=== PATIENT | male | born 1945 | race Caucasian/White ===

== ENCOUNTER 2019-09-25 12:51 | Outpatient (CLI) | payer MEDICARE, SELFPAY ==
--- NOTE | ~2019-09-25 | CT_ITS ---
EXAMINATION:CT lung screening DATE: 09/25/2019 13:13 INDICATION: Personal history of tobacco dependence. Current smoker with 100 pack year history. TECHNIQUE: Computed tomography (CT) of the chest was performed without intravenous contrast. Automate d exposure control and iterative reconstruction technique were employed. The dose-length product (DLP ) was 165.17 mGy-cm. COMPARISON: Chest CT 12/22/2016 FINDINGS: There is mild emphysema. There is mild atelectasis bilaterally. There is a 3 mm nodule at t he minor fissure. No pleural effusion. The heart size is normal. There are coronary artery calcificat ions. No pericardial effusion. There is mild thoracic spondylosis. IMPRESSION: 1. Lung-RADS category 2: Benign appearance or behavior. Continue annual screening with noncontrast lo w-dose chest CT in 12 months. Reviewed, dictated and finalized at location A. 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 Lung-RADS category 2: Benign appearance or behavior. Continue annual screeni ng with noncontrast low-dose chest CT in 12 months.
== END 2019-09-25 12:52 | disposition home or self-care (01) ==
PROVIDERS: Visit Provider Internal Medicine
DX: Z12.2 Encounter for screening for malignant neoplasm of respiratory organs (principal); Z87.891 Personal history of nicotine dependence
CPT/HCPCS: G0297

== ENCOUNTER 2020-08-20 12:45 | Outpatient (CLI) | payer MEDICARE, SELFPAY ==
--- NOTE | ~2020-08-20 | XR_ITS ---
EXAMINATION: XR chest 2V DATE: 08/20/2020 12:58 INDICATION: Chronic obstructive pulmonary disease. TECHNIQUE: Frontal and lateral views of the chest were obtained. COMPARISON: Chest 2 views 07/27/2019, chest CT 09/25/2019 FINDINGS: The chest demonstrates clear lungs without pneumonia, pleural effusion, or pneumothorax. Th e heart size is normal. There are prominent paracardial fat pads. IMPRESSION: 1. No acute cardiopulmonary disease. Reviewed, dictated and finalized at location A. 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
[2020-08-20 12:45] VITALS: PULSE 73; O2SAT 90
[2020-08-20 12:50] VITALS: PULSE 92; O2SAT 85
[2020-08-20 12:55] VITALS: PULSE 93; O2SAT 86
[2020-08-20 13:00] VITALS: PULSE 96; O2SAT 87
[2020-08-20 13:05] VITALS: PULSE 95; O2SAT 90
[2020-08-20 13:20] VITALS: PULSE 74; O2SAT 90
--- NOTE | 2020-08-20 13:36 | HOMEO2EVAL ---
Home Oxygen Evaluation RC: Home Oxygen (O2) Evaluation Start: 08/20/20 13:32 Freq: Status: Active Protocol: RPE Activity Type Activity Date Activity User E-Sign Co-Sign Detail Recorded Client Recorded Date Recorded By Document 08/20/20 12:45 [email or web address] [email or web address] 08/20/20 13:35 KEISHA Document 08/20/20 12:50 [email or web address] [email or web address] 08/20/20 13:35 KEISHA Document 08/20/20 12:55 [email or web address] [email or web address] 08/20/20 13:35 KEISHA Document 08/20/20 13:00 [email or web address] [email or web address] 08/20/20 13:35 KEISHA Document 08/20/20 13:05 [email or web address] [email or web address] 08/20/20 13:35 KEISHA Document 08/20/20 13:20 [email or web address] [email or web address] 08/20/20 13:35 KEISHA 08/20/20 08/20/20 08/20/20 12:45 12:50 12:55 Home O2 Evaluation Test Phase Resting Exercise Exercise Oxygen Delivery Room Air Room Air Nasal Cannula Oxygen Flow Rate (L/min) 1 Pulse Oximetry (90-100 %) 90 85 L 86 L Pulse Rate (60-100 beats/min) 73 92 93 Rating of Perceived Dyspnea (PD) Ambulation Distance (feet) Treatment Charges O2 Evaluation 08/20/20 08/20/20 08/20/20 13:00 13:05 13:20 Home O2 Evaluation Test Phase Exercise Exercise Resting Oxygen Delivery Nasal Cannula Nasal Cannula Room Air Oxygen Flow Rate (L/min) 2 3 Pulse Oximetry (90-100 %) 87 L 90 90 Pulse Rate (60-100 beats/min) 96 95 74 Rating of Perceived Dyspnea (PD) +2 Mild, Some Difficulty, Noticeable to the Observer Ambulation Distance (feet) 500 Treatment Charges
== END 2020-08-20 12:46 | disposition home or self-care (01) ==
LOC: ANHPFT 12:46
PROVIDERS: Visit Provider Internal Medicine
DX: J44.9 Chronic obstructive pulmonary disease, unspecified (principal)
CPT/HCPCS: 71046; 94618

== ENCOUNTER 2023-02-22 12:01 | Outpatient (CLI) | payer MEDICARE, SELFPAY ==
--- NOTE | ~2023-02-22 | PE_ITS ---
EXAMINATION: PET skull to mid thigh DATE: 02/22/2023 14:22 INDICATION: Lung mass TECHNIQUE: Blood glucose level was 111 mg/dL. 9.852 mCi of 18-fluorodeoxyglucose (18-FDG) was adminis tered i.v. Low dose computed tomography (CT) images were acquired from the base of the brain to the p roximal thighs for attenuation correction and anatomic localization. Positron emission tomography (PE T) images were acquired in the same distribution beginning 48 minutes after injection. Images includi ng fused PET/CT images were reconstructed in axial, coronal, and sagittal planes. Automated exposure control technique was employed. The dose-length product was 483.00mGy-cm. COMPARISON: Chest CT dated 09/25/2019 FINDINGS: Head/neck: There is symmetric increased activity in the oral and nasal cavities, laryngeal muscles and ocular mu scles without CT correlate, likely physiologic. No pathologically enlarged cervical lymphadenopathy o r suspicious foci of increased FDG uptake in the visualized head or neck. Chest: 2.5 cm FDG avid spiculated mass in the anterior segment of the left upper lobe with maximal SUV of 14 .3 suspicious for primary bronchogenic carcinoma. No other suspicious pulmonary nodules, pneumonia, p ulmonary edema or pleural effusion. Heart size is normal. Atherosclerotic coronary artery calcificati ons potentially coronary artery stenting. No pericardial effusion. Thoracic aorta is normal in calibe r. No pathologically enlarged or FDG avid thoracic lymphadenopathy. Abdomen/pelvis/proximal thighs: Physiologic renal accumulation and excretion of FDG activity in the kidneys, bladder and along portio ns of ureters. Prostatomegaly. Normal degree and heterogenous pattern of increased uptake throughout the liver without radiologic correlate or dominant FDG avid lesion. The gallbladder, pancreas, spleen and bilateral adrenal glands are normal. Prominent uptake scattered throughout the bowels without ra diologic correlate, also likely physiologic. No other abnormal foci of increased FDG uptake or pathol ogically enlarged lymphadenopathy in the abdomen, pelvis or proximal thighs. Musculoskeletal: Moderate cervical and mild thoracic and lumbar spondylosis. No suspicious lytic, blastic or FDG avid bone lesions. IMPRESSION: 1. Prominent FDG uptake associated with a 2.5 cm left upper lobe mass which is concerning for primary bronchogenic carcinoma. Would recommend percutaneous CT-guided biopsy. 2. No lesion suspicious for metastatic disease. Reviewed, dictated and finalized at location A. IMPRESSION: 1. Prominent FDG uptake associated with a 2.5 cm left upper lobe mass which is concerning for primary bronchogenic carcinoma. Would recommend percutaneous CT- guided biopsy. 2. No lesion suspicious for metastatic disease.
[2023-02-22 12:34] LABS: Glucose Point of Care 111 mg/dl (65-105)
== END 2023-02-22 12:02 | disposition home or self-care (01) ==
PROVIDERS: PCP Internal Medicine; Visit Provider Internal Medicine
DX: R91.8 Other nonspecific abnormal finding of lung field (principal)
CPT/HCPCS: 78815; A9552

== ENCOUNTER 2023-03-07 09:04 | Outpatient (CLI) | payer MEDICARE, SELFPAY ==
[2023-02-27 15:33] VITALS: BMI 25.9
--- NOTE | 2023-02-27 15:36 | PC.NURSE ---
Pre Radiology instructions Report to the outpatient robin christensen on date _03/07/23____ at time __9:00AM for procedure Time: _11:00AM___ YOU MAY BE MONITORED AT HOSPITAL FOR UP TO 4 HOURS AFTER YOUR PROCEDURE. A visitor will be allowed to accompany the patient into the hospital. You and your visitor will be asked to self-screen and do not enter if you have any COVID symptoms. A mask is OPTIONAL within the hospital. Patients are to have no food or drink 6 hours prior to procedure time Driving will be restricted after the procedure, you must have a person to drive you home. Labs will be drawn in preop area and once reviewed, you will be taken to radiology area for procedure. When the procedure is completed, you will be taken to outpatient where you will be monitored for several hours. You may have one visitor in this area. Other than holding anti-coagulants, patient may take other medication(s) as scheduled. Prior to your appointment date patients are instructed to hold anti-coagulants after discussing with ordering provider to stop. If unable to discontinue anti-coagulants please notify radiologist. ? No aspirin or warfarin (Coumadin) for 7 days prior to the procedure. ? No clopidogrel (Plavix), ticagrelor (Brilinta), prasugrel (Effient) or dabigatran (Pradaxa) for 5 days prior to the procedure. ? No rivaroxaban (Xarelto), apixaban (Eliquis), dipyridamole (Aggrenox or Persantine) or cilostazol (Pletal) for 2 days prior to the procedure. Medications to discontinue per physician: __HOLD ASPIRIN 7 DAYS PRE-PROCEDURE Date to take last dose: __02/28/23 Please leave all valuables, including medications, at home the day of procedure. The hospital will not accept responsibility for valuables. Wear comfortable, loose fitting clothing.? Follow any additional instructions given to you from ordering provider. Telephone instructions given to _PATIENT & WIFE and asked if any additional questions and then verbalized understanding. Patient advised to call scheduling provider office or registration scheduling [phone] if any additional questions.
[2023-03-07] VITALS (11 sets, daily range): BP systolic 114–129; BP diastolic 55–75; PULSE 47–55; RESP 16–20; TEMP 36.3; O2SAT 92–98
--- NOTE | ~2023-03-07 | CT_ITS ---
EXAMINATION: CT biopsy lung w/imaging DATE: 03/07/2023 11:18 INDICATION: Solitary nodule of lung. TECHNIQUE: The procedure including the risks, benefits, and alternatives and possibility of chest tub e placement were discussed with the patient. Risks discussed included infection, approximately 1/20 r isk of symptomatic hemorrhage beyond mild hemoptysis, approximately 1/3 risk of pneumothorax, approxi mately 1/10 risk of pneumothorax severe enough to warrant chest tube placement, and rarely . The patient understood the risks and agreed to proceed. The patient was placed supine. The skin overlyi ng the left lung was prepped and draped in sterile fashion. Anesthetic was administered with 1% lido michael subcutaneously. A 19 gauge outer needle was advanced under CT guidance to the lesion of intere st. A 20 gauge core biopsy needle was then used to obtain 3 core biopsy specimens. The needle was rem cholo and the entry site was cleaned and dressed. The mA was adjusted according to patient size. Itera tive reconstruction technique was employed. The dose-length product was 162.06 mGy-cm. There were no immediate complications. FINDINGS: CT images demonstrate the outer needle tip adjacent to a 2.5 cm nodule in left lung upper l obe. Postbiopsy images demonstrate a tiny pneumothorax. IMPRESSION: 1. CT-guided core needle biopsy of a 2.5 cm nodule in left lung upper lobe. Reviewed, dictated and finalized at location A.
--- NOTE | ~2023-03-07 | XR_ITS ---
EXAMINATION: XR chest 1V DATE: 03/07/2023 11:24 INDICATION: Left lung nodule status post percutaneous biopsy. TECHNIQUE: A single frontal view of the chest was obtained. COMPARISON: Chest 2 views 08/20/2020 FINDINGS: There is a nodule in left lung upper lobe. No pleural effusion or pneumothorax. The heart s ize is normal. IMPRESSION: 1. Nodule in left lung upper lobe suspicious for primary bronchogenic carcinoma. Reviewed, dictated and finalized at location A. IMPRESSION: 1. Nodule in left lung upper lobe suspicious for primary bronchogenic carcinoma .
--- NOTE | ~2023-03-07 | XR_ITS ---
EXAMINATION: XR chest 1V portable DATE: 03/07/2023 12:22 INDICATION: Left lung nodule status post percutaneous biopsy. TECHNIQUE: A single frontal view of the chest was obtained. COMPARISON: Chest single view at 11:20 AM FINDINGS: There is a nodule in left upper lobe. No pleural effusion or pneumothorax. The heart size i s normal. IMPRESSION: 1. Nodule in left lung upper lobe suspicious for primary bronchogenic carcinoma. Reviewed, dictated and finalized at location A. IMPRESSION: 1. Nodule in left lung upper lobe suspicious for primary bronchogenic carcinoma .
--- NOTE | ~2023-03-07 | XR_ITS ---
EXAMINATION: XR chest 1V portable DATE: 03/07/2023 14:22 INDICATION: Status post percutaneous left lung biopsy TECHNIQUE: frontal view of the chest was obtained. COMPARISON: Chest radiograph dated 03/07/2023 FINDINGS: Again seen is a subtle nodular opacity in the para mediastinal left upper lung zone corresponding to the biopsied nodule which is concerning for primary bronchogenic carcinoma. No other airspace opaciti es, pulmonary edema, pleural effusion or pneumothorax. Heart size is normal IMPRESSION: 1. No pneumothorax or other acute cardiopulmonary disease post percutaneous biopsy of a left upper lo be nodule which is concerning for primary bronchogenic carcinoma. Reviewed, dictated and finalized at location A. IMPRESSION: 1. No pneumothorax or other acute cardiopulmonary disease post percutaneous bio psy of a left upper lobe nodule which is concerning for primary bronchogenic ca rcinoma.
[2023-03-07 09:57] LABS: Mean Platelet Volume 8.9 fl (7.4-10.4); Platelet Count Result 229 k/mm3 (150-375)
[2023-03-07 10:05] LABS: Prothrombin Time 13.2 Seconds (11.1-14.7)
[2023-03-07 11:41] LABS: Glucose Point of Care 99 mg/dl (65-105)
== END 2023-03-07 14:43 | disposition home or self-care (01) ==
PROVIDERS: PCP Internal Medicine; Visit Provider Radiology Diagnostic Radiology
PROC: BB24ZZZ Computerized Tomography (CT Scan) of Bilateral Lungs (ICD-10-PCS; CPT 32408; principal; 2023-03-07 11:00)
DX: R91.1 Solitary pulmonary nodule (principal); C34.12 Malignant neoplasm of upper lobe, left bronchus or lung
CPT/HCPCS: 32408; 36415; 71045; 82948; 85049; 85610; 88305; 88342

== ENCOUNTER 2023-05-04 11:05 | Outpatient (CLI) | payer MEDICARE, SELFPAY ==
[2023-05-04 11:17] LABS: Basophils Absolute Auto 0.1 K/mm3 (0.0-0.1); Basophils Percent Auto 0.6 % (0.2-1.2); Eosinophils Absolute Auto 0.1 K/mm3 (0-0.3); Eosinophils Percent Auto 0.6 % (0-4.4); Hemoglobin 17.1 g/dL (14.0-18.0); Immature Granulocyte Absolute 0.02 K/mm3 (0.00-0.031); Immature Granulocyte Percent A 0.2 % (0-0.5); Lymphocytes Absolute Auto 0.83 K/mm3 (0.9-3.2); Lymphocytes Percent Auto 8.9 % (18.3-44.2); Mean Corpuscular HGB Conc 32.9 g/dl (32-36); Mean Corpuscular Volume 88.3 fl (80-100); Mean Platelet Volume 8.5 fl (7.4-10.4); Monocytes Absolute Auto 0.8 K/mm3 (0.1-0.6); Neutrophils Absolute Auto 7.5 K/mm3 (1.3-6.7); Neutrophils Percent Auto 80.7 % (45.5-73.1); Platelet Count Result 247 k/mm3 (150-375); Red Blood Count 5.89 M/mm3 (4.6-6.20); Red Cell Distribution Width 13.1 % (11.5-14.5); White Blood Count 9.4 K/mm3 (4.5-10.0)
[2023-05-04 11:23] LABS: Blood Urea Nitrogen 12 mg/dL (8-26); Carbon Dioxide 28 mmol/L (22-30); Chloride 95 mmol/L (98-109); Estimated Glomerular Filt Rate > 60; Glucose 104 mg/dL (70-105); Ionized Calcium (POC) 1.24 mmol/L (1.11-1.31); Potassium 4.2 mmol/L (3.5-4.9); Sodium 136 mmol/L (138-146)
[2023-05-04 12:15] LABS: Alanine Aminotransferase 13 U/L (6-50); Albumin Level 4.6 g/dL (3.5-5.1); Alkaline Phosphatase 68 U/L (38-126); Anion Gap 10 mmol/L (8-16); Aspartate Amino Transferase 23 U/L (17-59); Bilirubin,Total 0.8 mg/dL (0.2-1.3); Blood Urea Nitrogen 13 mg/dL (9-20); Calcium 10.1 mg/dL (8.4-10.2); Carbon Dioxide 29 mmol/L (22-30); Chloride 96 mmol/L (98-107); Estimated Glomerular Filt Rate > 60; Glucose 103 mg/dL (65-110); Potassium 4.2 mmol/L (3.4-5.0); Sodium 135 mmol/L (137-145)
== END 2023-05-04 11:06 | disposition home or self-care (01) ==
LOC: ANHLAB 11:07
PROVIDERS: PCP Internal Medicine; Visit Provider Internal Medicine Hematology & Oncology
DX: C34.92 Malignant neoplasm of unspecified part of left bronchus or lung (principal)
CPT/HCPCS: 36415; 80047; 80053; 85025

== ENCOUNTER 2023-07-20 15:01 | Outpatient (CLI) | payer MEDICARE, SELFPAY ==
--- NOTE | ~2023-07-20 | CT_ITS ---
EXAMINATION:CT diagnostic chest w con DATE: 07/20/2023 15:36 INDICATION: Malignant neoplasm of upper lobe of left lung. TECHNIQUE: Computed tomography (CT) of the chest was performed with 75 mL Omnipaque 350 intravenous c ontrast. Automated exposure control and iterative reconstruction technique were employed. The dose-le ngth product (DLP) was 225.23 mGy-cm. COMPARISON: Chest CT 09/25/2019, PET/CT 02/22/2023 FINDINGS: There is mild emphysema. There is mild atelectasis bilaterally. There is a 1.7 cm nodule in left lung upper lobe. No pleural effusion. Aortic atherosclerosis is noted. The heart size is normal . There are coronary artery calcifications. No pericardial effusion. There is cortical thinning of th e kidneys. There are cysts in the kidneys measuring up to 17 mm on the right. There is calcified athe rosclerosis of the aorta and many of the other arteries. There is mild thoracic spondylosis. IMPRESSION: 1. 1.7 cm nodule in left lung upper lobe, decreased from 2.5 cm on 03/07/2023, consistent with squamou s cell carcinoma. Reviewed, dictated and finalized at location A. PACKER IMPRESSION: 1. 1.7 cm nodule in left lung upper lobe, decreased from 2.5 cm on 03/07/2023, c onsistent with squamous cell carcinoma.
[2023-07-20 15:31] LABS: Estimated Glomerular Filt Rate > 60
== END 2023-07-20 15:02 | disposition home or self-care (01) ==
PROVIDERS: PCP Internal Medicine; Visit Provider Radiology Radiation Oncology
DX: C34.12 Malignant neoplasm of upper lobe, left bronchus or lung (principal); R91.1 Solitary pulmonary nodule
CPT/HCPCS: 71260; Q9967

== ENCOUNTER 2023-10-22 09:45 | Outpatient (CLI) | payer MEDICARE, SELFPAY ==
--- NOTE | ~2023-10-22 | CT_ITS ---
EXAMINATION:CT diagnostic chest w con DATE: 10/22/2023 11:22 INDICATION: Malignant neoplasm of upper lobe. TECHNIQUE: Computed tomography (CT) of the chest was performed with 75 mL Omnipaque 350 intravenous c ontrast. Automated exposure control and iterative reconstruction technique were employed. The dose-le ngth product (DLP) was 186.89 mGy-cm. COMPARISON: Chest CT 07/20/2023 FINDINGS: There is mild emphysema. There is mild atelectasis bilaterally. There is a 14 mm nodule in left upper lobe, decreased from 18 mm on 07/20/2023. No pleural effusion. The heart size is normal. T here are coronary artery calcifications. No pericardial effusion. Aortic atherosclerosis is noted. Th ere are no pathologically enlarged lymph nodes. There is mild thoracic spondylosis. IMPRESSION: 1. 14 mm nodule in left lung upper lobe, decreased from 18 mm on 07/20/2023, consistent with squamous cell carcinoma. Reviewed, dictated and finalized at location A. IMPRESSION: 1. 14 mm nodule in left lung upper lobe, decreased from 18 mm on 07/20/2023, co nsistent with squamous cell carcinoma.
[2023-10-23 08:54] LABS: Estimated Glomerular Filt Rate > 60
== END 2023-10-22 09:46 | disposition home or self-care (01) ==
PROVIDERS: PCP Internal Medicine; Visit Provider Radiology Radiation Oncology
DX: C34.12 Malignant neoplasm of upper lobe, left bronchus or lung (principal)
CPT/HCPCS: 71260; Q9967

== ENCOUNTER 2024-01-22 08:25 | Outpatient (CLI) | payer MEDICARE, SELFPAY ==
--- NOTE | ~2024-01-22 | CT_ITS ---
EXAMINATION:CT diagnostic chest w con DATE: 01/22/2024 09:02 INDICATION: Malignant neoplasm of upper lobe, left bronchus. TECHNIQUE: Computed tomography (CT) of the chest was performed with 75 mL Omnipaque 350 intravenous c ontrast. Automated exposure control and iterative reconstruction technique were employed. The dose-le ngth product (DLP) was 186.45 mGy-cm. COMPARISON: Chest CT 10/22/2023, 03/07/2023 FINDINGS: There is mild emphysema. There is mild atelectasis bilaterally. There is a 13 mm nodule in left upper lobe that previously measured 14 mm. No pleural effusion. The heart size is normal. There are coronary artery calcifications. No pericardial effusion. There are no pathologically enlarged lym ph nodes. There is calcified atherosclerosis of the aorta and many of the other arteries. There is mi ld thoracic spondylosis. There is mild chronic height loss of multiple vertebral bodies. IMPRESSION: 1. 13 mm left upper lobe pulmonary nodule that previously measured 14 mm, consistent with squamous ce ll carcinoma. Reviewed, dictated and finalized at location A. IMPRESSION: 1. 13 mm left upper lobe pulmonary nodule that previously measured 14 mm, consi stent with squamous cell carcinoma.
[2024-01-22 08:55] LABS: Estimated Glomerular Filt Rate > 60
== END 2024-01-22 08:26 | disposition home or self-care (01) ==
PROVIDERS: PCP Internal Medicine; Visit Provider Radiology Radiation Oncology
DX: C34.12 Malignant neoplasm of upper lobe, left bronchus or lung (principal); R91.1 Solitary pulmonary nodule
CPT/HCPCS: 71260; Q9967

== ENCOUNTER 2024-02-08 23:34 | Inpatient (IN) | payer MEDICARE, OTHER, SELFPAY ==
--- NOTE | ~2024-02-08 | XR_ITS ---
XR chest 1V portable 02/09/2024 01:08 Indication: Shortness of breath Procedure: AP portable chest Comparison: Comparison to multiple prior studies sequentially, with oldest reviewed study dated 08/20. Findings: Heart size normal. No focal air space disease, pulmonary edema, pleural effusion or suspect ed pneumothorax. The lungs are hyperinflated which is consistent with, but not diagnostic of chronic obstructive pulmonary disease. Impression: 1: No acute cardiopulmonary disease. Reviewed, dictated and finalized at location B. Impression: 1: No acute cardiopulmonary disease.
[2024-02-08 23:40] VITALS: BP 167/82; PULSE 101; RESP 26; TEMP 38.1; O2SAT 98
[2024-02-08 23:49] VITALS: PULSE 101; O2SAT 99
[2024-02-09] VITALS (23 sets, daily range): BP systolic 104–184; BP diastolic 59–97; PULSE 49–101; RESP 16–28; TEMP 36–36.4; O2SAT 94–100; BMI 22.9
--- NOTE | 2024-02-09 00:02 | ECG_ITS ---
Test Date: 2024-02-09 00:08:46 Measurements Intervals [place] Rate: 96 P: 66 IA: 139 QRS: 5 QRSD: 133 T: 23 QT: 375 QTc: 475 Interpretive Statements SINUS RHYTHM RIGHT BUNDLE BRANCH BLOCK BASELINE ARTIFACT- I, II, III, AVR, AVL, AVF, V5 ABNORMAL ECG No previous ECG available for comparison Electronically Signed On 02-09-2024 08:37:17 CDT by Adi Strickland D.O.
[2024-02-09 00:16] LABS: Basophils Percent Auto 0.5 % (0.2-1.2); Hematocrit 51.1 % (42.0-52.0); Hemoglobin 16.9 g/dL (14.0-18.0); Immature Granulocyte Absolute 0.02 K/mm3 (0.00-0.031); Immature Granulocyte Percent A 0.3 % (0-0.5); Lymphocytes Absolute Auto 0.33 K/mm3 (0.9-3.2); Lymphocytes Percent Auto 5.3 % (18.3-44.2); Mean Corpuscular HGB Conc 33.1 g/dl (32-36); Mean Corpuscular Hemoglobin 28.7 pg (26-34); Mean Corpuscular Volume 86.9 fl (80-100); Mean Platelet Volume 10.7 fl (7.4-10.4); Monocytes Absolute Auto 0.8 K/mm3 (0.1-0.6); Monocytes Percent Auto 12.5 % (2.6-8.5); Neutrophils Absolute Auto 5.1 K/mm3 (1.3-6.7); Neutrophils Percent Auto 81.4 % (45.5-73.1); Platelet Count Result 166 k/mm3 (150-375); Red Blood Count 5.88 M/mm3 (4.6-6.20); Red Cell Distribution Width 14.1 % (11.5-14.5); White Blood Count 6.2 K/mm3 (4.5-10.0)
[2024-02-09 00:28] LABS: Alanine Aminotransferase 10 U/L (6-50); Albumin Level 4.5 g/dL (3.5-5.1); Alkaline Phosphatase 63 U/L (38-126); Anion Gap 11 mmol/L (4-12); Aspartate Amino Transferase 20 U/L (17-59); Bilirubin,Total 0.5 mg/dL (0.2-1.3); Blood Urea Nitrogen 11 mg/dL (9-20); Calcium 9.5 mg/dL (8.4-10.2); Carbon Dioxide 27 mmol/L (22-30); Chloride 95 mmol/L (98-107); Estimated CRCL calculation 72 ml/min; Estimated Glomerular Filt Rate > 60; Glucose 144 mg/dL (65-110); Potassium 3.5 mmol/L (3.4-5.0); Sodium 133 mmol/L (137-145)
[2024-02-09 00:52] LABS: Influenza A QL RT-PCR Negative (Negative); Influenza B QL RT-PCR Negative (Negative); RSV RNA, RT-PCR Negative (Negative); SARS-CoV-2 RNA PCR Positive (Negative)
[2024-02-09] MEDS: IPRATROPIUM 0.5 MG/ALBUTEROL SULFATE 2.5 MG AMPUL.NEB 3 ML 12 ML INHALATION (01:30)
[2024-02-09] MEDS: dexAMETHasone SOD PHOS INJ 10 MG/ML 1 ML VIAL IV PUSH ×2 (01:38→05:02)
--- NOTE | 2024-02-09 01:47 | ED.GENADULT ---
HPI - General Adult General Chief complaint: Shortness of Breath/Dyspnea Stated complaint: DIFFICULTY IN BREATHING Time Seen by Provider: 02/09/24 00:21 History of Present Illness HPI narrative: This is a 78-year-old male with history of COPD on 3 L home oxygen presenting for increased difficulty breathing. The last 2 days the patient has had worsening shortness of breath, productive cough and lethargy. Patient denies fevers chills chest pain abdominal pain nausea vomiting or diarrhea. Patient is still smoking tobacco. Patient is supposed to be on home oxygen all times but only wears it at night. Related Data Home Medications Medication Instructions Recorded Confirmed metformin 1,000 mg tablet 1,000 mg PO BID 07/27/19 01/29/24 aspirin 81 mg tablet,delayed 81 mg PO DAILY 08/05/19 01/29/24 release (Aspir-Low) budesonide-formoterol HFA 160 2 puff inhalation BID 08/05/19 01/29/24 mcg-4.5 mcg/actuation aerosol inhaler (Symbicort) trazodone 100 mg tablet 100 mg PO HS 08/05/19 01/29/24 albuterol sulfate 90 mcg/actuation 1 inh inhalation Q4H PRN Dyspnea 08/23/20 01/29/24 aerosol inhaler lisinopril 40 mg tablet 40 mg PO QAM 02/27/23 01/29/24 metoprolol tartrate 100 mg tablet 50 mg PO BID 02/27/23 01/29/24 tiotropium bromide 2.5 2 puff inhalation QAM 02/27/23 01/29/24 mcg/actuation mist for inhalation (Spiriva Respimat) Allergies Allergy/AdvReac Type Severity Reaction Status Date / Time No Known Allergies Allergy Verified 01/29/24 10:16 [facility] Past Medical History Medical History Arthritis CAD (coronary artery disease) COPD (chronic obstructive pulmonary disease) CPAP (continuous positive airway pressure) dependence Glaucoma History of angina Kidney stone Knee effusion, right Right knee DJD Skin cancer Sleep apnea Surgical History Surgical History History of cardiac catheterization History of surgical removal of skin lesion Stented coronary artery Family History Family History Mother Family history of malignant neoplasm Family history of lung cancer Father Family history of Alzheimer's disease Family history of lung cancer Other Family history of cardiovascular disease Social History Social History Smoking packs per day: 1 Smoking cigarettes per day: 20.0 Years smoked: 60 Smoking pack-years: 60.00 Smoking status: Current every day smoker Tobacco type: cigarettes Second hand tobacco smoke exposure: Yes Smoking end date: 07/22/19 Alcohol intake: former Substance use: never Substance use type: does not use Spiritual care concerns: No Exam Narrative: APPEARANCE: Appears older than his stated age Head: atraumatic. EYES: EOMI, NOSE: Atraumatic NECK: Trachea midline RESPIRATORY: Tachypneic, decreased airmovement in all hick[place], increased oxygen commands CARDIOVASCULAR: RRR, no peripheral edema ABDOMINAL: Non-distended soft nontender MUSCULOSKELETAl: No obvious deformities NEURO: Alert. Moving 4/4 extremities SKIN:: Warm, dry. Normal color PSYCHIATRIC: Normal affect Course Vital Signs Vital signs: Vital Signs Temperature 100.6 F H 02/08/24 23:40 Pulse Rate 101 H 02/08/24 23:40 Respiratory Rate 26 H 02/08/24 23:40 Blood Pressure 167/82 H 02/08/24 23:40 Pulse Oximetry 98 02/08/24 23:40 Oxygen Delivery Nasal Cannula 02/08/24 23:40 Oxygen Flow Rate 6 02/08/24 23:40 Temperature 100.6 F H 02/08/24 23:40 Pulse Rate 99 02/09/24 02:30 Respiratory Rate 21 H 02/09/24 02:30 Blood Pressure 184/97 H 02/09/24 00:46 Pulse Oximetry 100 02/09/24 02:30 Oxygen Delivery Nasal Cannula 02/09/24 01:30 Oxygen Flow Rate 3 02/09/24 01:30 Medical Decision Making [facility] Narrative Medical decision making narrative: -Course: 78-year-old male with COPD on 3lpm home 02 presenting for difficulty breathing. On arrival patient febrile/tachycardic tachypnic with increased oxygen demands. Given a breathing treatment. Workup significant for COVID-19 infection. Patient is given 10 mg of dexamethasone. Patient will be admitted to the hospital for further management. -DDX includes but is not limited to: Pneumonia, viral syndrome, COPD exacerbation -Co-morbidities complicating care: COPD, tobacco user -Independent interpretation of studies: Labs reviewed. COVID-19 positive. Independent EKG interpretation: Rhythm [sinus], Rate [96], [place] -[normal], [place] -[normal], QRS [right bundle-branch block], QTC [normal], T waves -[negative for concerning inversions], ST Segments - [Negative for concerning elevations] Final interpretations: [Normal Sinus Rhythm] -Discussion of Management/Consultants: Isabela -Interventions: Hour long DuoNeb treatment, 10 mg dexamethasone, Tylenol -Shared decision making / Disposition:admitted Vital Signs Vital Signs: Vital Signs Temperature 100.6 F H 02/08/24 23:40 Pulse Rate 101 H 02/08/24 23:40 Respiratory Rate 26 H 02/08/24 23:40 Blood Pressure 167/82 H 02/08/24 23:40 Pulse Oximetry 98 02/08/24 23:40 Oxygen Delivery Nasal Cannula 02/08/24 23:40 Oxygen Flow Rate 6 02/08/24 23:40 Temperature 100.6 F H 02/08/24 23:40 Pulse Rate 99 02/09/24 02:30 Respiratory Rate 21 H 02/09/24 02:30 Blood Pressure 184/97 H 02/09/24 00:46 Pulse Oximetry 100 02/09/24 02:30 Oxygen Delivery Nasal Cannula 02/09/24 01:30 Oxygen Flow Rate 3 02/09/24 01:30 Lab Data 02/09/24 00:10 02/09/24 00:10 Labs: Lab Results 02/09/24 02/09/24 Range/Units 00:10 02:10 WBC 6.2 (4.5-10.0) K/mm3 RBC 5.88 (4.6-6.20) M/mm3 Hgb 16.9 (14.0-18.0) g/dL Hct 51.1 (42.0-52.0) % MCV 86.9 (80-100) fl MCH 28.7 (26-34) pg MCHC 33.1 (32-36) g/dl RDW 14.1 (11.5-14.5) % Plt Count 166 (150-375) k/mm3 MPV 10.7 H (7.4-10.4) fl Immature Gran % (Auto) 0.3 (0-0.5) % Neut % (Auto) 81.4 H (45.5-73.1) % Lymph % (Auto) 5.3 L (18.3-44.2) % [place] % (Auto) 12.5 H (2.6-8.5) % Eos % (Auto) 0.0 (0-4.4) % Baso % (Auto) 0.5 (0.2-1.2) % Lymph # (Auto) 0.33 L (0.9-3.2) K/mm3 [place] # (Auto) 0.8 H (0.1-0.6) K/mm3 Eos # (Auto) 0.0 (0-0.3) K/mm3 Baso # (Auto) 0.0 (0.0-0.1) K/mm3 Abs Immat Gran (auto) 0.02 (0.00-0.031) K/mm3 Absolute Neuts (auto) 5.1 (1.3-6.7) K/mm3 Absolute Nucleated RBC 0.000 (0.0-0.012) K/mm3 Nucleated RBC % 0.0 (0.0-0.2) % Sodium 133 L (137-145) mmol/L Potassium 3.5 (3.4-5.0) mmol/L Chloride 95 L (98-107) mmol/L Carbon Dioxide 27 (22-30) mmol/L Anion Gap 11 (4-12) mmol/L BUN 11 (9-20) mg/dL Creatinine 0.70 (0.7-1.3) mg/dL Estim Creat Clear Calc 72 ml/min Estimated GFR > 60 (59 - ) Glucose 144 H (65-110) mg/dL Calcium 9.5 (8.4-10.2) mg/dL Total Bilirubin 0.5 (0.2-1.3) mg/dL AST 20 (17-59) U/L ALT 10 (6-50) U/L Alkaline Phosphatase 63 (38-126) U/L Total Protein 7.0 (6.3-8.2) g/dL Albumin 4.5 (3.5-5.1) g/dL Urine Color Pending Urine Appearance Pending Urine pH Pending Ur Specific [place] Pending Urine Protein Pending Urine Glucose (UA) Pending Urine Ketones Pending Ur Blood (Man) Pending Urine Nitrate Pending Urine Bilirubin Pending Urine Urobilinogen Pending Leukocyte Esterase Rfl Pending Influenza A (RT-PCR) Negative (Negative) Influenza B (RT-PCR) Negative (Negative) RSV (RT-PCR) Negative (Negative) SARS-CoV-2 RNA (RT-PCR) Positive A (Negative) Discharge Plan Discharge Clinical Impression: COVID, COPD (chronic obstructive pulmonary disease) Patient Disposition: Still a Patient Condition: Stable Prescriptions: No Action aspirin [Aspir-Low] 81 mg tablet,delayed release (DR/EC) 81 mg PO DAILY Symbicort 160-4.5 mcg/actuation HFA aerosol inhaler 2 puff INHALATION BID trazodone 100 mg tablet 100 mg PO HS Patient Comments: Yamil Cash albuterol sulfate 90 mcg/actuation HFA aerosol inhaler 1 inh inhalation Q4H PRN (Reason: Dyspnea) metformin 1,000 mg Tablet 1,000 mg PO BID metoprolol tartrate 100 mg tablet 50 mg PO BID Rx Instructions: TAKE 1/2 TABLET BY MOUTH TWICE DAILY lisinopril 40 mg tablet 40 mg PO QAM Rx Instructions: TAKE 1 TABLET BY MOUTH EVERY DAY Spiriva Respimat 2.5 mcg/actuation mist 2 puff INHALATION QAM ipratropium-albuterol 0.5 mg-3 mg(2.5 mg base)/3 mL solution for nebulization See Rx Instructions .ROUTE .COMPLEX Qty: 180 0RF Dose Instruction: USE 3 ML VIA NEBULIZER EVERY 4 HOURS NEEDED FOR SHORTNESS OF BREATH Rx Instructions: USE 3 ML VIA NEBULIZER EVERY 4 HOURS NEEDED FOR SHORTNESS OF BREATH atorvastatin 10 mg tablet 10 mg PO DAILY Qty: 90 1RF Jardiance 25 mg tablet 25 mg PO DAILY Qty: 90 1RF Follow-up/Referrals: Alida,Jonah Priest MD [Primary Care Provider] -
[2024-02-09 02:26] LABS: Appearance Urine Clear (Clear); Bacteria Urine None Seen /hpf; Bilirubin Urine Negative (Negative); Blood Urine 1+ (Negative); Color Urine Yellow (Yellow); Glucose Urine UA 3+ mg/dL (Negative); Ketones Urine Trace mg/dL (Negative); Leukocyte Esterase Ur Negative LEU/UL (Negative); Nitrate Urine Negative (Negative); Non Pathogenic Casts 0-2; Protein Urine 1+ mg/dL (Negative); RBC Urine 0-2 /hpf (0-2); Specific Grav Ur 1.032 (1.001-1.035); Squamous Epithelial Cell Urine None Seen /hpf (Few); Urobilinogen Urine 0.2 mg/dL (<2.0); WBC Urine 0-5 /hpf (0-3)
[2024-02-09 02:47] LABS: Add Urine Microscopic? YES
[2024-02-09] MEDS: ACETAMINOPHEN 500 MG TABLET 1000 MG PO (03:25)
--- NOTE | 2024-02-09 04:40 | ADMGEN ---
This patient, Alysa Driscoll, was admitted to 2 Medical Room 241-01. Patient/family oriented to hospital policies and general routines including ID bracelet, bed and alarms, visiting hours, pain management, procedures, bathroom and other care routines, personal items, smoking policy, room service/diet, and visiting hours. Information on how to activate the Rapid Response Team has been discussed. Patient/Family are encouraged to report perceived risks to care and to ask questions if they do not understand what they are told or what they should do.
--- NOTE | 2024-02-09 07:49 | P.HP_ITS ---
H&P: HPI History of Present Illness Date/Time: 02/09/24 07:49 Chief Complaint: SOB/Weakness/Fatigue Narrative: Patient is a 78-year-old male who presented to the emergency department with complaints shortness of breath,productive cough weakness and fatigue. Patient has a past medical history COPD, CAD, neoplasm of the right lung and is an everyday smoker. Patient denied any fever, chills, dizziness abdominal pain reports requested him come to the emergency department due to increased lethargy for the last day or two. Patient has chronic respiratory failure with hypoxia and wears 3 L supplemental oxygen at home but is not compliant typically only wears at night. Patient denied any improvement with his inhalers denied any chest pain. Initial findings emergency department shows labs unremarkable but did test positive for COVID-19 and chest x-ray showing hyperinflation. He was placed on 6 L nasal cannula for acute on chronic respiratory distress and admitted to the medical unit for continued evaluation and treatment. Review of Systems Review of Systems: All systems reviewed & are unremarkable except as noted in HPI and below PMFSH Past Medical History Medical History Arthritis CAD (coronary artery disease) COPD (chronic obstructive pulmonary disease) CPAP (continuous positive airway pressure) dependence Glaucoma History of angina Kidney stone Knee effusion, right Right knee DJD Skin cancer Sleep apnea Surgical History Surgical History History of cardiac catheterization History of surgical removal of skin lesion Stented coronary artery Family History Family History Mother Family history of malignant neoplasm Family history of lung cancer Family history of cardiovascular disease Father Family history of lung cancer Family history of Alzheimer's disease Family history of cardiovascular disease Social History Social History Smoking packs per day: 1 Smoking cigarettes per day: 20.0 Years smoked: 60 Smoking pack-years: 60.00 Smoking status: Current every day smoker Tobacco type: cigarettes Second hand tobacco smoke exposure: Yes Smoking end date: 07/22/19 Alcohol intake: never Substance use: former Substance use type: marijuana Do You Feel Safe in your Home?: Yes Lack of Transportation: No Lack of Food: Never True Current Housing: I Have Housing Concerned About Future Housing: No Difficulty Paying Gas/Electric Bills: No Difficulty Paying for Meds: No Currently Unemployed: No Education: High School Diploma/GED Difficulty w/ Childcare or Family Care: No Spiritual care concerns: No Meds Home Medications and Allergies Home Medications Medication Instructions Recorded Confirmed Type metformin 1,000 mg tablet 1,000 mg PO DAILY 07/27/19 01/29/24 History aspirin 81 mg tablet,delayed 81 mg PO DAILY 08/05/19 02/09/24 History release (Aspir-Low) budesonide-formoterol HFA 160 2 puff inhalation BID 08/05/19 02/09/24 History mcg-4.5 mcg/actuation aerosol inhaler (Symbicort) trazodone 100 mg tablet 100 mg PO HS 08/05/19 02/09/24 History albuterol sulfate 90 mcg/actuation 1 inh inhalation Q4H PRN Dyspnea 08/23/20 02/09/24 History aerosol inhaler ipratropium 0.5 mg-albuterol 3 mg See Rx Instructions .Route 02/15/21 02/09/24 Rx (2.5 mg base)/3 mL nebulization .COMPLEX #180 mL soln atorvastatin 10 mg tablet 10 mg PO DAILY #90 tabs 09/20/22 02/09/24 Rx lisinopril 40 mg tablet 40 mg PO QAM 02/27/23 02/09/24 History metoprolol tartrate 100 mg tablet 50 mg PO BID 02/27/23 02/09/24 History tiotropium bromide 2.5 2 puff inhalation QAM 02/27/23 02/09/24 History mcg/actuation mist for inhalation (Spiriva Respimat) empagliflozin 25 mg tablet 25 mg PO DAILY #90 tabs 06/26/23 02/09/24 Rx (Jardiance) bupropion HCl 100 mg tablet,12 hr 100 mg PO BID 02/09/24 02/09/24 History sustained-release Allergies Allergy/AdvReac Type Severity Reaction Status Date / Time No Known Allergies Allergy Verified 02/09/24 04:44 Vital Signs Vital Signs - 24 hr 02/08/24 23:40 02/08/24 23:49 02/08/24 23:49 Temperature 100.6 F H Pulse Rate 101 H 101 H Respiratory Rate 26 H Blood Pressure 167/82 H Pulse Oximetry 98 99 Oxygen Delivery Nasal Cannula Nasal Cannula Oxygen Flow Rate 6 4 02/09/24 01:50 02/09/24 01:30 02/09/24 00:31 Temperature Pulse Rate 91 96 Respiratory Rate 20 27 H Blood Pressure 167/89 H Pulse Oximetry 96 94 Oxygen Delivery Nasal Cannula Oxygen Flow Rate 3 02/09/24 00:46 02/09/24 02:30 02/09/24 03:02 Temperature Pulse Rate 100 99 97 Respiratory Rate 28 H 21 H 20 Blood Pressure 184/97 H Pulse Oximetry 95 100 Oxygen Delivery Oxygen Flow Rate 02/09/24 05:04 02/09/24 05:05 02/09/24 05:00 Temperature 97.6 F 97.6 F Pulse Rate 96 96 Respiratory Rate 16 16 Blood Pressure 104/59 L Pulse Oximetry 97 97 Oxygen Delivery Nasal Cannula Oxygen Flow Rate 6 02/09/24 04:00 Temperature Pulse Rate 101 H Respiratory Rate Blood Pressure Pulse Oximetry Oxygen Delivery Oxygen Flow Rate Exam Narrative: Physical Exam: * GENERAL: Alert and oriented x 3. No acute distress. * EYES: EOMI. No scleral icterus. PERRLA. * HEENT: Moist mucous membranes. * LUNGS: Rhonchi throughout auscultation bilaterally. use of accessory muscles and tachypnea * CARDIOVASCULAR: Regular rate and rhythm. No murmur. No JVD. S1-S2 * ABDOMEN: Soft, non tenderness and non-distended. No palpable masses. * EXTREMITIES: No edema. Non-tender * SKIN: No rashes or lesions. Skin warm, dry. * NEUROLOGIC: No focal neurological deficits. CN II-XII grossly intact * PSYCHIATRIC: Appropriate mood and affect. Good judgement and insight. No visual or auditory hallucinations. No suicidal or homicidal ideation. H&P: Results Labs Labs: Short CBC 02/09/24 Range/Units 00:10 WBC 6.2 (4.5-10.0) K/mm3 Hgb 16.9 (14.0-18.0) g/dL Hct 51.1 (42.0-52.0) % Plt Count 166 (150-375) k/mm3 [facility] 02/09/24 00:10 Sodium 133 L Potassium 3.5 Chloride 95 L Carbon Dioxide 27 BUN 11 Creatinine 0.70 Glucose 144 H Calcium 9.5 Liver Function 02/09/24 Range/Units 00:10 Total Bilirubin 0.5 (0.2-1.3) mg/dL AST 20 (17-59) U/L ALT 10 (6-50) U/L Alkaline Phosphatase 63 (38-126) U/L Albumin 4.5 (3.5-5.1) g/dL Urine 02/09/24 Range/Units 02:10 Urine Color Yellow (Yellow) Urine Appearance Clear (Clear) Urine pH 5.0 (5.0-9.0) Ur Specific [place] 1.032 (1.001-1.035) Urine Protein 1+ H (Negative) mg/dL Urine Glucose (UA) 3+ H (Negative) mg/dL Imaging Chest x-ray: Radiologist's impression: XR chest 1V portable 02/09/2024 01:08 Indication: Shortness of breath Procedure: AP portable chest Comparison: Comparison to multiple prior studies sequentially, with oldest reviewed study dated 08/20/2020. Findings: Heart size normal. No focal air space disease, pulmonary edema, pleural effusion or suspected pneumothorax. The lungs are hyperinflated which is consistent with, but not diagnostic of chronic obstructive pulmonary disease. Impression: 1: No acute cardiopulmonary disease. Assessment and Plan Assessment and plan (1) COVID: Code(s): U07.1 - COVID-19 Status: Acute (2) Malignant neoplasm of upper lobe, left bronchus or lung: Code(s): C34.12 - Malignant neoplasm of upper lobe, left bronchus or lung Status: Acute (3) COPD exacerbation: Code(s): J44.1 - Chronic obstructive pulmonary disease with (acute) exacerbation Status: Acute (4) Essential (primary) hypertension: Code(s): I10 - Essential (primary) hypertension Status: Acute (5) Type 2 diabetes mellitus without complication, without long-term current use of insulin: Code(s): E11.9 - Type 2 diabetes mellitus without complications Status: Acute (6) Dyslipidemia, goal LDL below 100: Code(s): E78.5 - Hyperlipidemia, unspecified Status: Acute (7) Acute on chronic respiratory failure with hypoxia: Code(s): J96.21 - Acute and chronic respiratory failure with hypoxia Status: Acute Plan Acute on chronic respiratory failure with hypoxia * Wears 3L NC supplemental oxygen at home non-compliant * placed on 6L in the ED 98% Wean O2 to maintain SPO2 92% * COVID+ * COPD exacerbation * Smoking cessation COVID+ * CXR showing hyperinflated lungs * Supportive care. * Monitor for COVID pneumonia, acute respiratory distress syndrome. * Decadron 6 mg daily * remdesivir for 5 days for patient with high risk for hypoxemia * supplemental oxygen as needed to maintain 92% oxygen saturation * monitor LFTs daily * incentive spirometer while awake * DuoNebs * guaifenesin scheduled for cough * glucose control for steroid use * gentle IV hydration keep patient dry COPD * HX malignant neoplasm of the upper lobe * Bronchodilators. * CXR showing hyperinflated lungs * incentive spirometry while awake. * steroids initiated covered with Decadron for COVID-19 * azithromycin 500 x 1 day/250 daily * supplemental oxygen therapy to maintain oxygen 92% wears 3L at home noncompliance * Pulmonary rehab if indicated. * Disease management following GOLD guidelines. * Repeat hospitalization risk evaluation per [facility] * Smoking cessation counseling done * Follow-up with steam distribution supervisor as an outpatient Diabetes * Accu-Cheks a.c. HS * sliding scale insulin * Jardiance resumed * hold oral diabetic medications (Metformin on medication reconciliation) * resume patient's home long-acting * Hemoglobin A1c 7.2 02/2022 repeat pending * Diabetic diet * encourage lifestyle modifications and weight loss * Optimize Isrrael inhibitors and statins. * Watch for hypoglycemia/hypoglycemic protocol ordered HX CAD: resumed BB and statin HX HTN: Resumed BB and lisinopril Code status: Full code per patient DVT prophylaxis: Lovenox Stress ulcer prophylaxis: Protonix 40 daily PT/OT notes: Ambulatory Disposition: Patient will continue admission to the medical unit treatment COPD exacerbation and supportive care for COVID-19 continue to wean supplemental oxygen as tolerated to maintain 92%. Plan will be to return home with when medically stable. Quality VTE Prophylaxis VTE prophylaxis: pharmacologic ordered -Patient's previous records reviewed on admission -ER notes reviewed in detail on admission -discussed all findings and current treatment plan with patient/Family/POA -Consultations reviewed for recommendations -Patient's disposition for safe discharge discussed with heel caser Dictation performed by [employer] direct speech recognition software, therefore lead recoverer variants and typographical errors may occur. Hospitalist [facility] Advance Care Plan I have confirmed that the patient's Advanced Care Plan is present, code status is documented, or surrogate decision maker is listed in patient medical record.: Yes Medication Reconciliation I have utilized all available resources to obtain, update and review the patients current medications (includes all prescriptions, OTC, herbals, cannabis, and nutritional supplements).: Yes The patient is not eligible for med reconciliation; the patient is in a emergent medical situation where delaying treatment would jeopardize the patients health.: No
[2024-02-09 07:59] LABS: Glucose Point of Care 230 mg/dl (65-105)
[2024-02-09] MEDS: ALBUTEROL SULFATE (*SP) AEROSOL 1 PUFF 2 PUFF INHALATION ×3 (08:22→20:33)
[2024-02-09] MEDS: ASPIRIN 81 MG ENTERIC TABLET PO (08:51)
[2024-02-09] MEDS: AZITHROMYCIN 250 MG TABLET 500 MG PO (08:51)
[2024-02-09] MEDS: ATORVASTATIN 10 MG TABLET PO (08:51)
[2024-02-09] MEDS: buPROPion HCL SR (12HR) 100 MG TABCR PO ×2 (08:51→20:50)
[2024-02-09] MEDS: lisinopriL 20 MG TABLET 40 MG PO (08:52)
[2024-02-09] MEDS: ENOXAPARIN 40 MG/0.4 ML SYRINGE SUB-Q (08:52)
[2024-02-09] MEDS: EMPAGLIFLOZIN 25 MG TABLET PO (08:52)
[2024-02-09] MEDS: guaiFENesin 12 HR 600 MG TABCR 1200 MG PO ×2 (08:52→20:50)
[2024-02-09] MEDS: FOLIC ACID 1 MG TABLET PO (08:52)
[2024-02-09] MEDS: MULTIVITAMINS THERAPEUTIC TAB (*BKC) 1 TABLET PO (08:53)
[2024-02-09] MEDS: PANTOPRAZOLE 40 MG TABLET PO (08:53)
[2024-02-09] MEDS: METOPROLOL TARTRATE 50 MG TAB 100 MG PO (08:53)
[2024-02-09] MEDS: INSULIN ASPART (*BKC) 100 UNITS/ML SUB-Q ×2 (08:59→12:29)
[2024-02-09] MEDS: REMDESIVIR 200 MG/NS 250 ML 200 MG/250 ML BAG 250 MG IVPB (09:45)
[2024-02-09 10:34] LABS: Hemoglobin A1C 6.5 % (<5.7)
[2024-02-09 12:09] LABS: Glucose Point of Care 221 mg/dl (65-105)
[2024-02-09 16:45] LABS: Glucose Point of Care 116 mg/dl (65-105)
[2024-02-09] MEDS: traZODone HCL 50 MG TABLET 100 MG PO (20:50)
[2024-02-09 23:10] LABS: Glucose Point of Care 108 mg/dl (65-105)
[2024-02-10] VITALS (16 sets, daily range): BP systolic 104–133; BP diastolic 49–62; PULSE 49–55; RESP 14–18; TEMP 36.1–36.8; O2SAT 95–99
[2024-02-10] MEDS: ALBUTEROL SULFATE (*SP) AEROSOL 1 PUFF 2 PUFF INHALATION ×4 (02:12→19:51)
[2024-02-10 06:06] LABS: Magnesium 2.2 mg/dL (1.6-2.3)
[2024-02-10 08:09] LABS: Alanine Aminotransferase 8 U/L (6-50); Albumin Level 3.7 g/dL (3.5-5.1); Alkaline Phosphatase 52 U/L (38-126); Anion Gap 6 mmol/L (4-12); Aspartate Amino Transferase 23 U/L (17-59); Bilirubin,Total 0.4 mg/dL (0.2-1.3); Blood Urea Nitrogen 19 mg/dL (9-20); Calcium 9.3 mg/dL (8.4-10.2); Carbon Dioxide 34 mmol/L (22-30); Chloride 99 mmol/L (98-107); Estimated CRCL calculation 70 ml/min; Estimated Glomerular Filt Rate > 60; Glucose 76 mg/dL (65-110); Potassium 4.3 mmol/L (3.4-5.0); Sodium 139 mmol/L (137-145)
[2024-02-10 08:14] LABS: Glucose Point of Care 74 mg/dl (65-105)
[2024-02-10 08:16] LABS: Hematocrit 52.4 % (42.0-52.0); Hemoglobin 16.6 g/dL (14.0-18.0); Mean Corpuscular HGB Conc 31.7 g/dl (32-36); Mean Corpuscular Hemoglobin 28.6 pg (26-34); Mean Corpuscular Volume 90.3 fl (80-100); Mean Platelet Volume 10.1 fl (7.4-10.4); Platelet Count Result 175 k/mm3 (150-375); Red Cell Distribution Width 14.3 % (11.5-14.5); White Blood Count 7.1 K/mm3 (4.5-10.0)
[2024-02-10] MEDS: ASPIRIN 81 MG ENTERIC TABLET PO (09:26)
[2024-02-10] MEDS: dexAMETHasone 2 MG TABLET 6 MG PO (09:26)
[2024-02-10] MEDS: FOLIC ACID 1 MG TABLET PO (09:28)
[2024-02-10] MEDS: AZITHROMYCIN 250 MG TABLET PO (09:28)
[2024-02-10] MEDS: EMPAGLIFLOZIN 25 MG TABLET PO (09:28)
[2024-02-10] MEDS: buPROPion HCL SR (12HR) 100 MG TABCR PO ×2 (09:28→21:21)
[2024-02-10] MEDS: guaiFENesin 12 HR 600 MG TABCR 1200 MG PO ×2 (09:28→21:21)
[2024-02-10] MEDS: ENOXAPARIN 40 MG/0.4 ML SYRINGE SUB-Q (09:28)
[2024-02-10] MEDS: PANTOPRAZOLE 40 MG TABLET PO (09:29)
[2024-02-10] MEDS: MULTIVITAMINS THERAPEUTIC TAB (*BKC) 1 TABLET PO (09:29)
[2024-02-10] MEDS: ALBUTEROL SULFATE (*SP) INHALER 1 PUFF (09:31)
[2024-02-10] MEDS: REMDESIVIR 100 MG/NS 250 ML 100 MG/250 ML BAG 250 MG IVPB (10:00)
[2024-02-10 12:08] LABS: Glucose Point of Care 86 mg/dl (65-105)
--- NOTE | 2024-02-10 12:34 | P.PNIM_ITS ---
Progress Note: A&P Assessment and Plan (1) COVID: Code(s): U07.1 - COVID-19 Status: Acute (2) Malignant neoplasm of upper lobe, left bronchus or lung: Code(s): C34.12 - Malignant neoplasm of upper lobe, left bronchus or lung Status: Acute (3) COPD exacerbation: Code(s): J44.1 - Chronic obstructive pulmonary disease with (acute) exacerbation Status: Acute (4) Essential (primary) hypertension: Code(s): I10 - Essential (primary) hypertension Status: Acute (5) Type 2 diabetes mellitus without complication, without long-term current use of insulin: Code(s): E11.9 - Type 2 diabetes mellitus without complications Status: Acute (6) Dyslipidemia, goal LDL below 100: Code(s): E78.5 - Hyperlipidemia, unspecified Status: Acute (7) Acute on chronic respiratory failure with hypoxia: Code(s): J96.21 - Acute and chronic respiratory failure with hypoxia Status: Acute (8) Bradycardia: Code(s): R00.1 - Bradycardia, unspecified Status: Acute Plan Acute on chronic respiratory failure with hypoxia * Wears 3L NC supplemental oxygen at home non-compliant * placed on 6L in the ED 98% Wean O2 to maintain SPO2 92% * COVID+ * COPD exacerbation * Smoking cessation COVID+ * CXR showing hyperinflated lungs * Supportive care. * Monitor for COVID pneumonia, acute respiratory distress syndrome. * Decadron 6 mg daily * remdesivir for 5 days for patient with high risk for hypoxemia * supplemental oxygen as needed to maintain 92% oxygen saturation * monitor LFTs daily * incentive spirometer while awake * DuoNebs * guaifenesin scheduled for cough * glucose control for steroid use * gentle IV hydration keep patient dry COPD * HX malignant neoplasm of the upper lobe * Bronchodilators. * CXR showing hyperinflated lungs * incentive spirometry while awake. * steroids initiated covered with Decadron for COVID-19 * azithromycin 500 x 1 day/250 daily * supplemental oxygen therapy to maintain oxygen 92% wears 3L at home noncompliance * Pulmonary rehab if indicated. * Disease management following GOLD guidelines. * Repeat hospitalization risk evaluation per [facility] * Smoking cessation counseling done * Follow-up with ice skating instructor as an outpatient Bradycardia * Decreased metoprolol to 50 mg b.i.d. * Cardiac monitoring Diabetes * Accu-Cheks a.c. HS * sliding scale insulin * Jardiance resumed * hold oral diabetic medications (Metformin on medication reconciliation) * resume patient's home long-acting * Hemoglobin A1c 7.2 02/2022 repeat pending * Diabetic diet * encourage lifestyle modifications and weight loss * Optimize Isrrael inhibitors and statins. * Watch for hypoglycemia/hypoglycemic protocol ordered HX CAD: resumed BB and statin HX HTN: Resumed BB and lisinopril Code status: Full code per patient DVT prophylaxis: Lovenox Stress ulcer prophylaxis: Protonix 40 daily PT/OT notes: PT/OT pending Disposition: Patient will continue admission to the medical unit treatment COPD exacerbation and supportive care for COVID-19 continue to wean supplemental oxygen as tolerated to maintain 92%. Plan will be to return home with when medically stable. Time Spent With Patient Time with patient: 15 - 25 minutes Subjective Date/time seen: 02/10/24 12:34 Interval history: Admission: Patient is a 78-year-old male who presented to the emergency department with complaints shortness of breath,productive cough weakness and fatigue. Patient has a past medical history COPD, CAD, neoplasm of the right lung and is an everyday smoker. Patient denied any fever, chills, dizziness abdominal pain reports requested him come to the emergency department due to increased lethargy for the last day or two. Patient has chronic respiratory failure with hypoxia and wears 3 L supplemental oxygen at home but is not compliant typically only wears at night. Patient denied any improvement with his inhalers denied any chest pain. Initial findings emergency department shows labs unremarkable but did test positive for COVID-19 and chest x-ray showing hyperinflation. He was placed on 6 L nasal cannula for acute on chronic respiratory distress and admitted to the medical unit for continued evaluation and treatment. 02/10/2024: Patient still with shortness of breath but back to baseline 3 L continues to have some fatigue order PT OT continue with current treatment for COVID-19 and COPD exacerbation. Review of Systems Review of Systems: All systems reviewed & are unremarkable except as noted in HPI and below Exam Narrative: Physical Exam: * GENERAL: Alert and oriented x 3. No acute distress. * EYES: EOMI. No scleral icterus. PERRLA. * HEENT: Moist mucous membranes. * LUNGS: Rhonchi throughout auscultation bilaterally. use of accessory muscles and tachypnea * CARDIOVASCULAR: Regular rate and rhythm. No murmur. No JVD. S1-S2 * ABDOMEN: Soft, non tenderness and non-distended. No palpable masses. * EXTREMITIES: No edema. Non-tender * SKIN: No rashes or lesions. Skin warm, dry. * NEUROLOGIC: No focal neurological deficits. CN II-XII grossly intact * PSYCHIATRIC: Appropriate mood and affect. Good judgement and insight. No visual or auditory hallucinations. No suicidal or homicidal ideation. Objective Data Vital Signs Vital Signs: Vital Signs - 24 hr 02/09/24 13:31 02/09/24 13:31 02/09/24 14:00 Temperature 96.8 F L Pulse Rate 52 L 54 L Respiratory Rate 20 20 Blood Pressure 122/66 Pulse Oximetry 96 100 Oxygen Delivery Nasal Cannula Oxygen Flow Rate 3 Fraction of Inspired Oxygen 32 02/09/24 16:00 02/09/24 20:44 02/09/24 20:51 Temperature 97.6 F Pulse Rate 55 L 55 L 49 L Respiratory Rate 16 Blood Pressure 115/62 Pulse Oximetry 97 Oxygen Delivery Oxygen Flow Rate Fraction of Inspired Oxygen 02/09/24 20:33 02/09/24 20:33 02/09/24 20:00 Temperature Pulse Rate 53 L 55 L Respiratory Rate 16 Blood Pressure Pulse Oximetry 97 Oxygen Delivery Nasal Cannula Oxygen Flow Rate 3 Fraction of Inspired Oxygen 02/10/24 00:00 02/10/24 02:13 02/10/24 04:00 Temperature Pulse Rate 54 L 53 L 53 L Respiratory Rate 16 Blood Pressure Pulse Oximetry Oxygen Delivery Oxygen Flow Rate Fraction of Inspired Oxygen 02/10/24 05:37 02/10/24 08:00 02/10/24 08:30 Temperature 98.0 F Pulse Rate 55 L 55 L Respiratory Rate 16 Blood Pressure 133/62 Pulse Oximetry 98 96 Oxygen Delivery Nasal Cannula Oxygen Flow Rate 3 Fraction of Inspired Oxygen 02/10/24 09:19 02/10/24 10:38 02/10/24 09:25 Temperature 96.9 F L Pulse Rate 50 L 50 L Respiratory Rate 18 Blood Pressure 104/49 L Pulse Oximetry 95 95 Oxygen Delivery Nasal Cannula Oxygen Flow Rate 3 Fraction of Inspired Oxygen 02/10/24 12:00 Temperature Pulse Rate 50 L Respiratory Rate Blood Pressure Pulse Oximetry Oxygen Delivery Oxygen Flow Rate Fraction of Inspired Oxygen Intake/Output Intake/Output: Intake & Output 02/07/24 02/08/24 02/09/24 02/10/24 23:59 23:59 23:59 23:59 Intake Total 720 940 Output Total 1700 1400 Balance -980 -460 Meds/Results Medications: Active Medications Generic Name Dose Route Start Last Admin Trade Name Freq PRN Reason Stop Dose Admin Acetaminophen 650 mg 02/09/24 07:43 Acetaminophen 325 Mg Tablet PO Q4H PRN Mild Pain (1-3) or Fever Albuterol 2 puff 02/09/24 09:00 02/10/24 08:30 Albuterol Sulfate (*Sp) Aerosol 1 Puff INHALATION 2 puff Q6HRT [facility] Administration Aspirin 81 mg 02/09/24 09:00 02/10/24 09:26 Aspirin 81 Mg Enteric Tablet PO 81 mg DAILY [facility] Administration Atorvastatin Calcium 10 mg 02/09/24 09:00 02/10/24 10:37 Atorvastatin 10 Mg Tablet PO Not Given DAILY [facility] Azithromycin 250 mg 02/10/24 09:00 02/10/24 09:28 Azithromycin 250 Mg Tablet PO 02/13/24 09:01 250 mg DAILY [facility] Administration Bupropion HCl 100 mg 02/09/24 09:00 02/10/24 09:28 Bupropion Hcl Sr (12hr) 100 Mg Tabcr PO 100 mg Q12HR [facility] Administration Dexamethasone 6 mg 02/10/24 08:00 02/10/24 09:26 Dexamethasone 2 Mg Tablet PO 02/19/24 08:01 6 mg DAILY@0800 [facility] Administration Dextrose 12.5 gm 02/09/24 07:48 Dextrose 50% 25 Gm/50 Ml Syringe IV PUSH PRN PRN Hypoglycemia Protocol Empagliflozin 25 mg 02/09/24 09:00 02/10/24 09:28 Empagliflozin 25 Mg Tablet PO 25 mg DAILY [facility] Administration Enoxaparin Sodium 40 mg 02/09/24 09:00 02/10/24 09:28 Enoxaparin 40 Mg/0.4 Ml Syringe SUB-Q 40 mg DAILY [facility] Administration Folic Acid 1 mg 02/09/24 09:00 02/10/24 09:28 Folic Acid 1 Mg Tablet PO 1 mg DAILY [facility] Administration Glucagon 1 mg 02/09/24 07:48 Glucagon For Inj 1 Mg Vial IM PRN PRN Hypoglycemia Protocol Glucose 15 gm 02/09/24 07:48 Glucose Oral Gel 15 Gm Of Glucse In 37.5 Gm Tube PO PRN PRN Hypoglycemia Protocol Guaifenesin 1,200 mg 02/09/24 09:00 02/10/24 09:28 Guaifenesin 12 Hr 600 Mg Tabcr PO 1,200 mg Q12HR [facility] Administration Remdesivir 100 mg in 250 mls @ 250 mls/hr 02/10/24 10:00 02/10/24 11:00 IVPB 02/13/24 10:59 Infused Q24H [facility] Infusion Dextrose 1,000 mls @ 100 mls/hr 02/09/24 07:48 Dextrose 5% 1,000 Ml IVPB PRN PRN Hypoglycemia Protocol Insulin Aspart 2 - 5 units 02/09/24 08:00 02/10/24 12:21 Insulin Aspart (*Bkc) 100 Units/Ml SUB-Q Not Given TIDWM [facility] Protocol Lisinopril 40 mg 02/09/24 09:00 02/10/24 10:37 Lisinopril 20 Mg Tablet PO Not Given QAM [facility] Metoprolol Tartrate 50 mg 02/10/24 09:00 02/10/24 10:38 Metoprolol Tartrate 50 Mg Tab PO Not Given Q12HR [facility] Multivitamins Therapeutic 1 tablet 02/09/24 09:00 02/10/24 09:29 Multivitamins Therapeutic Tab (*Bkc) PO 1 tablet QAM [facility] Administration Ondansetron HCl 4 mg 02/09/24 07:43 Ondansetron Inj 4 Mg/2 Ml Vial IV PUSH Q6H PRN Nausea And Vomiting Pantoprazole Sodium 40 mg 02/09/24 09:00 02/10/24 09:29 Pantoprazole 40 Mg Tablet PO 40 mg QAM [facility] Administration Trazodone HCl 100 mg 02/09/24 21:00 02/09/24 20:50 Trazodone Hcl 50 Mg Tablet PO 100 mg HS [facility] Administration Radiology Results: ITS Impressions Chest X-Ray 02/09/24 07:18 Impression: 1: No acute cardiopulmonary disease. Labs Labs: Laboratory Results - last 24 hr 02/09/24 02/09/24 02/10/24 16:38 20:41 05:20 WBC 7.1 RBC 5.80 Hgb 16.6 Hct 52.4 H MCV 90.3 MCH 28.6 MCHC 31.7 L RDW 14.3 Plt Count 175 MPV 10.1 Sodium 139 Potassium 4.3 Chloride 99 Carbon Dioxide 34 H Anion Gap 6 BUN 19 Creatinine 0.70 Estim Creat Clear Calc 70 Estimated GFR > 60 Glucose 76 POC Capillary Glucose 116 H 108 H Calcium 9.3 Magnesium 2.2 Total Bilirubin 0.4 AST 23 ALT 8 Alkaline Phosphatase 52 Total Protein 6.0 L Albumin 3.7 02/10/24 02/10/24 08:09 12:00 WBC RBC Hgb Hct MCV MCH MCHC RDW Plt Count MPV Sodium Potassium Chloride Carbon Dioxide Anion Gap BUN Creatinine Estim Creat Clear Calc Estimated GFR Glucose POC Capillary Glucose 74 86 Calcium Magnesium Total Bilirubin AST ALT Alkaline Phosphatase Total Protein Albumin Quality VTE Prophylaxis VTE prophylaxis: pharmacologic ordered Hospitalist MIPS Advance Care Plan I have confirmed that the patient's Advanced Care Plan is present, code status is documented, or surrogate decision maker is listed in patient medical record.: Yes Medication Reconciliation I have utilized all available resources to obtain, update and review the patien ts current medications (includes all prescriptions, OTC, herbals, cannabis, and nutritional supplements).: Yes The patient is not eligible for med reconciliation; the patient is in a emergent medical situation where delaying treatment would jeopardize the patients health.: No
[2024-02-10 17:31] LABS: Glucose Point of Care 115 mg/dl (65-105)
[2024-02-10 21:09] LABS: Glucose Point of Care 159 mg/dl (65-105)
[2024-02-10] MEDS: traZODone HCL 50 MG TABLET 100 MG PO (21:21)
[2024-02-11] VITALS (15 sets, daily range): BP systolic 123–142; BP diastolic 63–78; PULSE 45–70; RESP 13–20; TEMP 36.4–36.6; O2SAT 94–100; BMI 22.9
[2024-02-11] MEDS: ALBUTEROL SULFATE (*SP) AEROSOL 1 PUFF 2 PUFF INHALATION ×4 (02:18→20:28)
[2024-02-11 06:29] LABS: Prothrombin Time 14.1 Seconds (11.1-14.7)
[2024-02-11 06:51] LABS: Alanine Aminotransferase 9 U/L (6-50); Albumin Level 3.5 g/dL (3.5-5.1); Alkaline Phosphatase 48 U/L (38-126); Aspartate Amino Transferase 24 U/L (17-59); Bilirubin,Total 0.3 mg/dL (0.2-1.3)
[2024-02-11 08:18] LABS: Glucose Point of Care 73 mg/dl (65-105)
[2024-02-11] MEDS: dexAMETHasone 2 MG TABLET 6 MG PO (08:30)
[2024-02-11] MEDS: ASPIRIN 81 MG ENTERIC TABLET PO (08:31)
[2024-02-11] MEDS: buPROPion HCL SR (12HR) 100 MG TABCR PO ×2 (08:33→21:23)
[2024-02-11] MEDS: AZITHROMYCIN 250 MG TABLET PO (08:33)
[2024-02-11] MEDS: guaiFENesin 12 HR 600 MG TABCR 1200 MG PO ×2 (08:34→21:23)
[2024-02-11] MEDS: LOSARTAN POTASSIUM 25 MG TABLET PO (08:34)
[2024-02-11] MEDS: ENOXAPARIN 40 MG/0.4 ML SYRINGE SUB-Q (08:34)
[2024-02-11] MEDS: FOLIC ACID 1 MG TABLET PO (08:34)
[2024-02-11] MEDS: EMPAGLIFLOZIN 25 MG TABLET PO (08:34)
[2024-02-11] MEDS: PANTOPRAZOLE 40 MG TABLET PO (08:35)
[2024-02-11] MEDS: MULTIVITAMINS THERAPEUTIC TAB (*BKC) 1 TABLET PO (08:35)
[2024-02-11] MEDS: ATORVASTATIN 10 MG TABLET PO (08:35)
--- NOTE | 2024-02-11 11:57 | P.PNIM_ITS ---
Progress Note: A&P Assessment and Plan (1) COVID: Code(s): U07.1 - COVID-19 Status: Acute (2) Malignant neoplasm of upper lobe, left bronchus or lung: Code(s): C34.12 - Malignant neoplasm of upper lobe, left bronchus or lung Status: Acute (3) COPD exacerbation: Code(s): J44.1 - Chronic obstructive pulmonary disease with (acute) exacerbation Status: Acute (4) Essential (primary) hypertension: Code(s): I10 - Essential (primary) hypertension Status: Acute (5) Type 2 diabetes mellitus without complication, without long-term current use of insulin: Code(s): E11.9 - Type 2 diabetes mellitus without complications Status: Acute (6) Dyslipidemia, goal LDL below 100: Code(s): E78.5 - Hyperlipidemia, unspecified Status: Acute (7) Acute on chronic respiratory failure with hypoxia: Code(s): J96.21 - Acute and chronic respiratory failure with hypoxia Status: Acute (8) Bradycardia: Code(s): R00.1 - Bradycardia, unspecified Status: Acute (9) Bacteremia: Code(s): R78.81 - Bacteremia Status: Acute Plan bacteremia * Staphylococcus hominis and Staphylococcus epidermidis * likely contaminated * follow-up cultures pending Acute on chronic respiratory failure with hypoxia * Wears 3L NC supplemental oxygen at home non-compliant * placed on 6L in the ED 98% Wean O2 to maintain SPO2 92% * COVID+ * COPD exacerbation * Smoking cessation COVID+ * CXR showing hyperinflated lungs * Supportive care. * Monitor for COVID pneumonia, acute respiratory distress syndrome. * Decadron 6 mg daily * remdesivir for 5 days for patient with high risk for hypoxemia * supplemental oxygen as needed to maintain 92% oxygen saturation * monitor LFTs daily * incentive spirometer while awake * DuoNebs * guaifenesin scheduled for cough * glucose control for steroid use * gentle IV hydration keep patient dry COPD * HX malignant neoplasm of the upper lobe * Bronchodilators. * CXR showing hyperinflated lungs * incentive spirometry while awake. * steroids initiated covered with Decadron for COVID-19 * azithromycin 500 x 1 day/250 daily * supplemental oxygen therapy to maintain oxygen 92% wears 3L at home noncompliance * Pulmonary rehab if indicated. * Disease management following GOLD guidelines. * Repeat hospitalization risk evaluation per [facility] * Smoking cessation counseling done * Follow-up with hydrodynamicist as an outpatient Bradycardia * Decreased metoprolol to 50 mg b.i.d. * Cardiac monitoring Diabetes * Accu-Cheks a.c. HS * sliding scale insulin * Jardiance resumed * hold oral diabetic medications (Metformin on medication reconciliation) * resume patient's home long-acting * Hemoglobin A1c 7.2 02/2022 repeat pending * Diabetic diet * encourage lifestyle modifications and weight loss * Optimize Isrrael inhibitors and statins. * Watch for hypoglycemia/hypoglycemic protocol ordered HX CAD: resumed BB and statin HX HTN: Resumed BB and lisinopril Code status: Full code per patient DVT prophylaxis: Lovenox Stress ulcer prophylaxis: Protonix 40 daily PT/OT notes: PT/OT pending Disposition: Patient will continue admission to the medical unit treatment COPD exacerbation and supportive care for COVID-19 continue to wean supplemental oxygen as tolerated to maintain 92%. Plan will be to return home with when medically stable. pending follow-up blood cultures. Time Spent With Patient Time with patient: 15 - 25 minutes Subjective Date/time seen: 02/11/24 11:57 Interval history: Admission: Patient is a 78-year-old male who presented to the emergency department with complaints shortness of breath,productive cough weakness and fatigue. Patient has a past medical history COPD, CAD, neoplasm of the right lung and is an everyday smoker. Patient denied any fever, chills, dizziness abdominal pain reports requested him come to the emergency department due to increased lethargy for the last day or two. Patient has chronic respiratory failure with hypoxia and wears 3 L supplemental oxygen at home but is not compliant typically only wears at night. Patient denied any improvement with his inhalers denied any chest pain. Initial findings emergency department shows labs unremarkable but did test positive for COVID-19 and chest x-ray showing hyperinflation. He was placed on 6 L nasal cannula for acute on chronic respiratory distress and admitted to the medical unit for continued evaluation and treatment. 02/10/2024: Patient still with shortness of breath but back to baseline 3 L continues to have some fatigue order PT OT continue with current treatment for COVID-19 and COPD exacerbation. Positive blood cultures but may be Contaminated repeat cultures ordered. Review of Systems Review of Systems: All systems reviewed & are unremarkable except as noted in HPI and below Exam Narrative: Physical Exam: * GENERAL: Alert and oriented x 3. No acute distress. * EYES: EOMI. No scleral icterus. PERRLA. * HEENT: Moist mucous membranes. * LUNGS: Rhonchi throughout auscultation bilaterally. use of accessory muscles and tachypnea * CARDIOVASCULAR: Regular rate and rhythm. No murmur. No JVD. S1-S2 * ABDOMEN: Soft, non tenderness and non-distended. No palpable masses. * EXTREMITIES: No edema. Non-tender * SKIN: No rashes or lesions. Skin warm, dry. * NEUROLOGIC: No focal neurological deficits. CN II-XII grossly intact * PSYCHIATRIC: Appropriate mood and affect. Good judgement and insight. No visual or auditory hallucinations. No suicidal or homicidal ideation. Objective Data Vital Signs Vital Signs: Vital Signs - 24 hr 02/10/24 12:00 02/10/24 14:00 02/10/24 16:00 Temperature 97.1 F L Pulse Rate 50 L 54 L 54 L Respiratory Rate 16 Blood Pressure 110/60 Pulse Oximetry 97 Oxygen Delivery Oxygen Flow Rate Fraction of Inspired Oxygen 02/10/24 21:19 02/10/24 22:00 02/10/24 22:28 Temperature 98.3 F Pulse Rate 49 L 50 L Respiratory Rate 14 17 Blood Pressure 115/60 Pulse Oximetry 99 Oxygen Delivery CPAP Oxygen Flow Rate Fraction of Inspired Oxygen 02/10/24 20:00 02/11/24 00:00 02/10/24 20:00 Temperature Pulse Rate 49 L 46 L Respiratory Rate Blood Pressure Pulse Oximetry 99 Oxygen Delivery Nasal Cannula Oxygen Flow Rate 3 Fraction of Inspired Oxygen 02/11/24 02:18 02/11/24 02:18 02/11/24 04:00 Temperature Pulse Rate 45 L 45 L 53 L Respiratory Rate 13 13 Blood Pressure Pulse Oximetry Oxygen Delivery CPAP Oxygen Flow Rate Fraction of Inspired Oxygen 02/11/24 06:00 02/11/24 08:00 02/11/24 08:30 Temperature 97.9 F 97.5 F L Pulse Rate 51 L 50 L 64 Respiratory Rate 14 16 Blood Pressure 142/78 H 130/67 Pulse Oximetry 100 97 Oxygen Delivery Oxygen Flow Rate Fraction of Inspired Oxygen 02/11/24 08:44 02/11/24 08:44 02/11/24 09:24 Temperature Pulse Rate 60 60 Respiratory Rate 16 16 Blood Pressure Pulse Oximetry 98 Oxygen Delivery Room Air Nasal Cannula Oxygen Flow Rate 3 Fraction of Inspired Oxygen 02/11/24 10:22 02/11/24 08:33 Temperature Pulse Rate Respiratory Rate Blood Pressure Pulse Oximetry 95 Oxygen Delivery Nasal Cannula Nasal Cannula Oxygen Flow Rate 3 3 Fraction of Inspired Oxygen Intake/Output Intake/Output: Intake & Output 02/08/24 02/09/24 02/10/24 02/11/24 23:59 23:59 23:59 23:59 Intake Total 720 1420 940 Output Total 1700 2150 900 Balance -980 -730 40 Meds/Results Medications: Active Medications Generic Name Dose Route Start Last Admin Trade Name Freq PRN Reason Stop Dose Admin Acetaminophen 650 mg 02/09/24 07:43 Acetaminophen 325 Mg Tablet PO Q4H PRN Mild Pain (1-3) or Fever Albuterol 2 puff 02/09/24 09:00 02/11/24 08:44 Albuterol Sulfate (*Sp) Aerosol 1 Puff INHALATION 2 puff Q6HRT [facility] Administration Aspirin 81 mg 02/09/24 09:00 02/11/24 08:31 Aspirin 81 Mg Enteric Tablet PO 81 mg DAILY [facility] Administration Atorvastatin Calcium 10 mg 02/09/24 09:00 02/11/24 08:35 Atorvastatin 10 Mg Tablet PO 10 mg DAILY [facility] Administration Azithromycin 250 mg 02/10/24 09:00 02/11/24 08:33 Azithromycin 250 Mg Tablet PO 02/13/24 09:01 250 mg DAILY [facility] Administration Bupropion HCl 100 mg 02/09/24 09:00 02/11/24 08:33 Bupropion Hcl Sr (12hr) 100 Mg Tabcr PO 100 mg Q12HR [facility] Administration Carvedilol 3.125 mg 02/11/24 21:00 Carvedilol 3.125 Mg Tablet PO Q12HR [facility] Dexamethasone 6 mg 02/10/24 08:00 02/11/24 08:30 Dexamethasone 2 Mg Tablet PO 02/19/24 08:01 6 mg DAILY@0800 [facility] Administration Dextrose 12.5 gm 02/09/24 07:48 Dextrose 50% 25 Gm/50 Ml Syringe IV PUSH PRN PRN Hypoglycemia Protocol Empagliflozin 25 mg 02/09/24 09:00 02/11/24 08:34 Empagliflozin 25 Mg Tablet PO 25 mg DAILY [facility] Administration Enoxaparin Sodium 40 mg 02/09/24 09:00 02/11/24 08:34 Enoxaparin 40 Mg/0.4 Ml Syringe SUB-Q 40 mg DAILY [facility] Administration Folic Acid 1 mg 02/09/24 09:00 02/11/24 08:34 Folic Acid 1 Mg Tablet PO 1 mg DAILY [facility] Administration Glucagon 1 mg 02/09/24 07:48 Glucagon For Inj 1 Mg Vial IM PRN PRN Hypoglycemia Protocol Glucose 15 gm 02/09/24 07:48 Glucose Oral Gel 15 Gm Of Glucse In 37.5 Gm Tube PO PRN PRN Hypoglycemia Protocol Guaifenesin 1,200 mg 02/09/24 09:00 02/11/24 08:34 Guaifenesin 12 Hr 600 Mg Tabcr PO 1,200 mg Q12HR [facility] Administration Remdesivir 100 mg in 250 mls @ 250 mls/hr 02/10/24 10:00 02/10/24 11:00 IVPB 02/13/24 10:59 Infused Q24H [facility] Infusion Dextrose 1,000 mls @ 100 mls/hr 02/09/24 07:48 Dextrose 5% 1,000 Ml IVPB PRN PRN Hypoglycemia Protocol Insulin Aspart 2 - 5 units 02/09/24 08:00 02/11/24 08:40 Insulin Aspart (*Bkc) 100 Units/Ml SUB-Q Not Given TIDWM [facility] Protocol Losartan Potassium 25 mg 02/11/24 09:00 02/11/24 08:34 Losartan Potassium 25 Mg Tablet PO 25 mg DAILY SERGEY Administration Multivitamins Therapeutic 1 tablet 02/09/24 09:00 02/11/24 08:35 Multivitamins Therapeutic Tab (*Bkc) PO 1 tablet QAM [facility] Administration Ondansetron HCl 4 mg 02/09/24 07:43 Ondansetron Inj 4 Mg/2 Ml Vial IV PUSH Q6H PRN Nausea And Vomiting Pantoprazole Sodium 40 mg 02/09/24 09:00 02/11/24 08:35 Pantoprazole 40 Mg Tablet PO 40 mg QAM [facility]GEY Administration Trazodone HCl 100 mg 02/09/24 21:00 02/10/24 21:21 Trazodone Hcl 50 Mg Tablet PO 100 mg HS [facility] Administration Radiology Results: ITS Impressions Chest X-Ray 02/09/24 07:18 Impression: 1: No acute cardiopulmonary disease. Labs Labs: Laboratory Results - last 24 hr 02/10/24 02/10/24 02/10/24 12:00 17:28 20:44 PT INR POC Capillary Glucose 86 115 H 159 H Total Bilirubin Direct Bilirubin AST ALT Alkaline Phosphatase Total Protein Albumin 02/11/24 02/11/24 05:46 08:15 PT 14.1 INR 1.0 POC Capillary Glucose 73 Total Bilirubin 0.3 Direct Bilirubin 0.0 AST 24 ALT 9 Alkaline Phosphatase 48 Total Protein 6.0 L Albumin 3.5 Quality VTE Prophylaxis VTE prophylaxis: pharmacologic ordered -Patient's previous records reviewed on admission -ER notes reviewed in detail on admission -discussed all findings and current treatment plan with patient/Family/POA -Consultations reviewed for recommendations -Patient's disposition for safe discharge discussed with case preparer and liner Dictation performed by [employer] direct speech recognition software, therefore strapping machine operator variants and typographical errors may occur. Hospitalist MIPS Advance Care Plan I have confirmed that the patient's Advanced Care Plan is present, code status is documented, or surrogate decision maker is listed in patient medical record.: Yes Medication Reconciliation I have utilized all available resources to obtain, update and review the patients current medications (includes all prescriptions, OTC, herbals, cannabis, and nutritional supplements).: Yes
[2024-02-11] MEDS: REMDESIVIR 100 MG/NS 250 ML 100 MG/250 ML BAG 250 MG IVPB (11:59)
[2024-02-11 12:07] LABS: Glucose Point of Care 96 mg/dl (65-105)
[2024-02-11 17:38] LABS: Glucose Point of Care 132 mg/dl (65-105)
[2024-02-11 21:19] LABS: Glucose Point of Care 169 mg/dl (65-105)
[2024-02-11] MEDS: carvediloL 3.125 MG TABLET PO (21:23)
[2024-02-11] MEDS: traZODone HCL 50 MG TABLET 100 MG PO (21:23)
[2024-02-12] VITALS (14 sets, daily range): BP systolic 126–135; BP diastolic 56–73; PULSE 52–75; RESP 16–20; TEMP 36.2–36.6; O2SAT 96–98
[2024-02-12] MEDS: ALBUTEROL SULFATE (*SP) AEROSOL 1 PUFF 2 PUFF INHALATION ×4 (02:00→21:15)
[2024-02-12 05:36] LABS: Basophils Percent Auto 0.2 % (0.2-1.2); Eosinophils Percent Auto 0.2 % (0-4.4); Hemoglobin 15.5 g/dL (14.0-18.0); Immature Granulocyte Absolute 0.01 K/mm3 (0.00-0.031); Immature Granulocyte Percent A 0.2 % (0-0.5); Lymphocytes Absolute Auto 1.32 K/mm3 (0.9-3.2); Lymphocytes Percent Auto 23.6 % (18.3-44.2); Mean Corpuscular HGB Conc 32.3 g/dl (32-36); Mean Corpuscular Hemoglobin 28.9 pg (26-34); Mean Corpuscular Volume 89.6 fl (80-100); Mean Platelet Volume 9.2 fl (7.4-10.4); Monocytes Absolute Auto 0.5 K/mm3 (0.1-0.6); Monocytes Percent Auto 9.1 % (2.6-8.5); Neutrophils Absolute Auto 3.7 K/mm3 (1.3-6.7); Neutrophils Percent Auto 66.7 % (45.5-73.1); Platelet Count Result 174 k/mm3 (150-375); Red Blood Count 5.36 M/mm3 (4.6-6.20); Red Cell Distribution Width 14.1 % (11.5-14.5); White Blood Count 5.6 K/mm3 (4.5-10.0)
[2024-02-12 05:53] LABS: Alanine Aminotransferase 10 U/L (6-50); Albumin Level 3.4 g/dL (3.5-5.1); Alkaline Phosphatase 46 U/L (38-126); Anion Gap 3 mmol/L (4-12); Aspartate Amino Transferase 21 U/L (17-59); Bilirubin,Total 0.3 mg/dL (0.2-1.3); Blood Urea Nitrogen 20 mg/dL (9-20); Calcium 8.7 mg/dL (8.4-10.2); Carbon Dioxide 38 mmol/L (22-30); Chloride 97 mmol/L (98-107); Estimated CRCL calculation 70 ml/min; Estimated Glomerular Filt Rate > 60; Glucose 84 mg/dL (65-110); Potassium 3.7 mmol/L (3.4-5.0); Sodium 138 mmol/L (137-145)
--- NOTE | 2024-02-12 07:33 | P.PNIM_ITS ---
Progress Note: A&P Assessment and Plan (1) COVID: Code(s): U07.1 - COVID-19 Status: Acute (2) Malignant neoplasm of upper lobe, left bronchus or lung: Code(s): C34.12 - Malignant neoplasm of upper lobe, left bronchus or lung Status: Acute (3) COPD exacerbation: Code(s): J44.1 - Chronic obstructive pulmonary disease with (acute) exacerbation Status: Acute (4) Essential (primary) hypertension: Code(s): I10 - Essential (primary) hypertension Status: Acute (5) Type 2 diabetes mellitus without complication, without long-term current use of insulin: Code(s): E11.9 - Type 2 diabetes mellitus without complications Status: Acute (6) Dyslipidemia, goal LDL below 100: Code(s): E78.5 - Hyperlipidemia, unspecified Status: Acute (7) Acute on chronic respiratory failure with hypoxia: Code(s): J96.21 - Acute and chronic respiratory failure with hypoxia Status: Acute (8) Bradycardia: Code(s): R00.1 - Bradycardia, unspecified Status: Acute (9) Bacteremia: Code(s): R78.81 - Bacteremia Status: Acute Plan bacteremia * Staphylococcus hominis and Staphylococcus epidermidis * likely contaminated * follow-up cultures pending 02/12/2024: * repeat cultures NGTD post 24 hours Acute on chronic respiratory failure with hypoxia * Wears 3L NC supplemental oxygen at home non-compliant * placed on 6L in the ED 98% Wean O2 to maintain SPO2 92% * COVID+ * COPD exacerbation * Smoking cessation COVID+ * CXR showing hyperinflated lungs * Supportive care. * Monitor for COVID pneumonia, acute respiratory distress syndrome. * Decadron 6 mg daily * remdesivir for 5 days for patient with high risk for hypoxemia * supplemental oxygen as needed to maintain 92% oxygen saturation * monitor LFTs daily * incentive spirometer while awake * DuoNebs * guaifenesin scheduled for cough * glucose control for steroid use * gentle IV hydration keep patient dry COPD * HX malignant neoplasm of the upper lobe * Bronchodilators. * CXR showing hyperinflated lungs * incentive spirometry while awake. * steroids initiated covered with Decadron for COVID-19 * azithromycin 500 x 1 day/250 daily * supplemental oxygen therapy to maintain oxygen 92% wears 3L at home noncompliance * Pulmonary rehab if indicated. * Disease management following GOLD guidelines. * Repeat hospitalization risk evaluation per [facility] * Smoking cessation counseling done * Follow-up with internet project manager as an outpatient Bradycardia * Decreased metoprolol to 50 mg b.i.d. * Cardiac monitoring 02/12/2024 * changed metoprolol to carvedilol 3.125 b.i.d. * Change his lisinopril to losartan 25 Diabetes * Accu-Cheks a.c. HS * sliding scale insulin * Jardiance resumed * hold oral diabetic medications (Metformin on medication reconciliation) * resume patient's home long-acting * Hemoglobin A1c 7.2 02/2022 repeat pending * Diabetic diet * encourage lifestyle modifications and weight loss * Optimize Isrrael inhibitors and statins. * Watch for hypoglycemia/hypoglycemic protocol ordered HX CAD: resumed BB and statin HX HTN: Changed to carvedilol and losartan discontinued his lisinopril and metoprolol Code status: Full code per patient DVT prophylaxis: Lovenox Stress ulcer prophylaxis: Protonix 40 daily PT/OT notes: PT/OT pending Disposition: Patient will continue admission to the medical unit treatment COPD exacerbation and supportive care for COVID-19 continue to wean supplemental oxygen as tolerated to maintain 92%. Plan will be to return home with when medically stable. pending follow-up blood cultures post 48 hours. Should be able to discharge tomorrow if no events and cultures remain with NGTD. Time Spent With Patient Time with patient: 15 - 25 minutes Subjective Date/time seen: 02/12/24 07:33 Interval history: Admission: Patient is a 78-year-old male who presented to the emergency department with complaints shortness of breath,productive cough weakness and fatigue. Patient has a past medical history COPD, CAD, neoplasm of the right lung and is an everyday smoker. Patient denied any fever, chills, dizziness abdominal pain reports requested him come to the emergency department due to increased lethargy for the last day or two. Patient has chronic respiratory failure with hypoxia and wears 3 L supplemental oxygen at home but is not compliant typically only wears at night. Patient denied any improvement with his inhalers denied any chest pain. Initial findings emergency department shows labs unremarkable but did test positive for COVID-19 and chest x-ray showing hyperinflation. He was placed on 6 L nasal cannula for acute on chronic respiratory distress and admitted to the medical unit for continued evaluation and treatment. 02/11/2024: Patient still with shortness of breath but back to baseline 3 L continues to have some fatigue order PT OT continue with current treatment for COVID-19 and COPD exacerbation. Positive blood cultures but may be Contaminated repeat cultures ordered. 02/12/2024: Patient labs unremarkable, normal WBC and continues on his home oxygen of 3L repeat blood cultures NGTD likely first set was contaminated if no growth after 48 hours can discharge to home tomorrow if no events overnight. Patient with no complaints did educate on the need to wear his oxygen at all times not just at night. Review of Systems Review of Systems: All systems reviewed & are unremarkable except as noted in HPI and below Exam Narrative: Physical Exam: * GENERAL: Alert and oriented x 3. No acute distress. * EYES: EOMI. No scleral icterus. PERRLA. * HEENT: Moist mucous membranes. * LUNGS: Rhonchi throughout auscultation bilaterally. use of accessory muscles and tachypnea * CARDIOVASCULAR: Regular rate and rhythm. No murmur. No JVD. S1-S2 * ABDOMEN: Soft, non tenderness and non-distended. No palpable masses. * EXTREMITIES: No edema. Non-tender * SKIN: No rashes or lesions. Skin warm, dry. * NEUROLOGIC: No focal neurological deficits. CN II-XII grossly intact * PSYCHIATRIC: Appropriate mood and affect. Good judgement and insight. No visual or auditory hallucinations. No suicidal or homicidal ideation. Objective Data Vital Signs Vital Signs: Vital Signs - 24 hr 02/11/24 08:00 02/11/24 08:30 02/11/24 08:44 Temperature 97.5 F L Pulse Rate 50 L 64 60 Respiratory Rate 16 16 Blood Pressure 130/67 Pulse Oximetry 97 98 Oxygen Delivery Room Air Oxygen Flow Rate Fraction of Inspired Oxygen 21 02/11/24 08:44 02/11/24 09:24 02/11/24 10:22 Temperature Pulse Rate 60 Respiratory Rate 16 Blood Pressure Pulse Oximetry Oxygen Delivery Nasal Cannula Nasal Cannula Oxygen Flow Rate 3 3 Fraction of Inspired Oxygen 02/11/24 08:33 02/11/24 12:00 02/11/24 14:34 Temperature Pulse Rate 68 62 Respiratory Rate 16 Blood Pressure Pulse Oximetry 95 Oxygen Delivery Nasal Cannula Oxygen Flow Rate 3 Fraction of Inspired Oxygen 02/11/24 14:00 02/11/24 16:00 02/11/24 19:28 Temperature 97.6 F 97.7 F Pulse Rate 70 60 66 Respiratory Rate 16 20 Blood Pressure 123/63 134/70 Pulse Oximetry 94 98 Oxygen Delivery Oxygen Flow Rate Fraction of Inspired Oxygen 02/11/24 21:23 02/11/24 20:00 02/11/24 20:00 Temperature Pulse Rate 66 62 Respiratory Rate Blood Pressure Pulse Oximetry 98 Oxygen Delivery Nasal Cannula Oxygen Flow Rate 3 Fraction of Inspired Oxygen 02/12/24 00:00 02/12/24 04:38 02/12/24 04:00 Temperature 97.7 F Pulse Rate 55 L 54 L 52 L Respiratory Rate 18 Blood Pressure 127/73 Pulse Oximetry 98 Oxygen Delivery Oxygen Flow Rate Fraction of Inspired Oxygen Intake/Output Intake/Output: Intake & Output 02/09/24 02/10/24 02/11/24 02/12/24 23:59 23:59 23:59 23:59 Intake Total 720 1420 1670 390 Output Total 1700 2150 1600 400 Balance -980 -730 70 -10 Meds/Results Medications: Active Medications Generic Name Dose Route Start Last Admin Trade Name Freq PRN Reason Stop Dose Admin Acetaminophen 650 mg 02/09/24 07:43 Acetaminophen 325 Mg Tablet PO Q4H PRN Mild Pain (1-3) or Fever Albuterol 2 puff 02/09/24 09:00 02/12/24 02:00 Albuterol Sulfate (*Sp) Aerosol 1 Puff INHALATION 2 puff Q6HRT SERGEY Administration Aspirin 81 mg 02/09/24 09:00 02/11/24 08:31 Aspirin 81 Mg Enteric Tablet PO 81 mg DAILY SERGEY Administration Atorvastatin Calcium 10 mg 02/09/24 09:00 02/11/24 08:35 Atorvastatin 10 Mg Tablet PO 10 mg DAILY SERGEY Administration Azithromycin 250 mg 02/10/24 09:00 02/11/24 08:33 Azithromycin 250 Mg Tablet PO 02/13/24 09:01 250 mg DAILY SERGEY Administration Bupropion HCl 100 mg 02/09/24 09:00 02/11/24 21:23 Bupropion Hcl Sr (12hr) 100 Mg Tabcr PO 100 mg Q12HR SERGEY Administration Carvedilol 3.125 mg 02/11/24 21:00 02/11/24 21:23 Carvedilol 3.125 Mg Tablet PO 3.125 mg Q12HR SERGEY Administration Dexamethasone 6 mg 02/10/24 08:00 02/11/24 08:30 Dexamethasone 2 Mg Tablet PO 02/19/24 08:01 6 mg DAILY@0800 SERGEY Administration Dextrose 12.5 gm 02/09/24 07:48 Dextrose 50% 25 Gm/50 Ml Syringe IV PUSH PRN PRN Hypoglycemia Protocol Empagliflozin 25 mg 02/09/24 09:00 02/11/24 08:34 Empagliflozin 25 Mg Tablet PO 25 mg DAILY SERGEY Administration Enoxaparin Sodium 40 mg 02/09/24 09:00 02/11/24 08:34 Enoxaparin 40 Mg/0.4 Ml Syringe SUB-Q 40 mg DAILY SERGEY Administration Folic Acid 1 mg 02/09/24 09:00 02/11/24 08:34 Folic Acid 1 Mg Tablet PO 1 mg DAILY SERGEY Administration Glucagon 1 mg 02/09/24 07:48 Glucagon For Inj 1 Mg Vial IM PRN PRN Hypoglycemia Protocol Glucose 15 gm 02/09/24 07:48 Glucose Oral Gel 15 Gm Of Glucse In 37.5 Gm Tube PO PRN PRN Hypoglycemia Protocol Guaifenesin 1,200 mg 02/09/24 09:00 02/11/24 21:23 Guaifenesin 12 Hr 600 Mg Tabcr PO 1,200 mg Q12HR SERGEY Administration Remdesivir 100 mg in 250 mls @ 250 mls/hr 02/10/24 10:00 02/11/24 12:59 IVPB 02/13/24 10:59 Infused Q24H SERGEY Infusion Dextrose 1,000 mls @ 100 mls/hr 02/09/24 07:48 Dextrose 5% 1,000 Ml IVPB PRN PRN Hypoglycemia Protocol Insulin Aspart 2 - 5 units 02/09/24 08:00 02/11/24 18:05 Insulin Aspart (*Bkc) 100 Units/Ml SUB-Q Not Given TIDWM SERGEY Protocol Losartan Potassium 25 mg 02/11/24 09:00 02/11/24 08:34 Losartan Potassium 25 Mg Tablet PO 25 mg DAILY SERGEY Administration Multivitamins Therapeutic 1 tablet 02/09/24 09:00 02/11/24 08:35 Multivitamins Therapeutic Tab (*Bkc) PO 1 tablet QAM SERGEY Administration Ondansetron HCl 4 mg 02/09/24 07:43 Ondansetron Inj 4 Mg/2 Ml Vial IV PUSH Q6H PRN Nausea And Vomiting Pantoprazole Sodium 40 mg 02/09/24 09:00 02/11/24 08:35 Pantoprazole 40 Mg Tablet PO 40 mg QAM SERGEY Administration Trazodone HCl 100 mg 02/09/24 21:00 02/11/24 21:23 Trazodone Hcl 50 Mg Tablet PO 100 mg HS SERGEY Administration Radiology Results: ITS Impressions Chest X-Ray 02/09/24 07:18 Impression: 1: No acute cardiopulmonary disease. Labs Labs: Laboratory Results - last 24 hr 02/11/24 02/11/24 02/11/24 08:15 12:05 17:35 WBC RBC Hgb Hct MCV MCH MCHC RDW Plt Count MPV Immature Gran % (Auto) Neut % (Auto) Lymph % (Auto) [place] % (Auto) Eos % (Auto) Baso % (Auto) Lymph # (Auto) [place] # (Auto) Eos # (Auto) Baso # (Auto) Abs Immat Gran (auto) Absolute Neuts (auto) Absolute Nucleated RBC Nucleated RBC % Sodium Potassium Chloride Carbon Dioxide Anion Gap BUN Creatinine Estim Creat Clear Calc Estimated GFR Glucose POC Capillary Glucose 73 96 132 H Calcium Total Bilirubin AST ALT Alkaline Phosphatase Total Protein Albumin 02/11/24 02/12/24 19:32 05:02 WBC 5.6 RBC 5.36 Hgb 15.5 Hct 48.0 MCV 89.6 MCH 28.9 MCHC 32.3 RDW 14.1 Plt Count 174 MPV 9.2 Immature Gran % (Auto) 0.2 Neut % (Auto) 66.7 Lymph % (Auto) 23.6 [place] % (Auto) 9.1 H Eos % (Auto) 0.2 Baso % (Auto) 0.2 Lymph # (Auto) 1.32 [place] # (Auto) 0.5 Eos # (Auto) 0.0 Baso # (Auto) 0.0 Abs Immat Gran (auto) 0.01 Absolute Neuts (auto) 3.7 Absolute Nucleated RBC 0.000 Nucleated RBC % 0.0 Sodium 138 Potassium 3.7 Chloride 97 L Carbon Dioxide 38 H Anion Gap 3 L BUN 20 Creatinine 0.70 Estim Creat Clear Calc 70 Estimated GFR > 60 Glucose 84 POC Capillary Glucose 169 H Calcium 8.7 Total Bilirubin 0.3 AST 21 ALT 10 Alkaline Phosphatase 46 Total Protein 6.0 L Albumin 3.4 L Quality VTE Prophylaxis VTE prophylaxis: pharmacologic ordered -Patient's previous records reviewed on admission -ER notes reviewed in detail on admission -discussed all findings and current treatment plan with patient/Family/POA -Consultations reviewed for recommendations -Patient's disposition for safe discharge discussed with corrections caseworker Dictation performed by [employer] direct speech recognition software, therefore oven tender bagels variants and typographical errors may occur. Hospitalist [facility] Advance Care Plan I have confirmed that the patient's Advanced Care Plan is present, code status is documented, or surrogate decision maker is listed in patient medical record.: Yes Medication Reconciliation I have utilized all available resources to obtain, update and review the patients current medications (includes all prescriptions, OTC, herbals, cannabis, and nutritional supplements).: Yes The patient is not eligible for med reconciliation; the patient is in a emergent medical situation where delaying treatment would jeopardize the patients health.: No
[2024-02-12 08:12] LABS: Glucose Point of Care 99 mg/dl (65-105)
[2024-02-12] MEDS: ATORVASTATIN 10 MG TABLET PO (08:45)
[2024-02-12] MEDS: ASPIRIN 81 MG ENTERIC TABLET PO (08:45)
[2024-02-12] MEDS: dexAMETHasone 2 MG TABLET 6 MG PO (08:45)
[2024-02-12] MEDS: carvediloL 3.125 MG TABLET PO ×2 (08:46→19:55)
[2024-02-12] MEDS: buPROPion HCL SR (12HR) 100 MG TABCR PO ×2 (08:46→19:55)
[2024-02-12] MEDS: AZITHROMYCIN 250 MG TABLET PO (08:46)
[2024-02-12] MEDS: EMPAGLIFLOZIN 25 MG TABLET PO (08:46)
[2024-02-12] MEDS: guaiFENesin 12 HR 600 MG TABCR 1200 MG PO ×2 (08:47→19:54)
[2024-02-12] MEDS: MULTIVITAMINS THERAPEUTIC TAB (*BKC) 1 TABLET PO (08:47)
[2024-02-12] MEDS: ENOXAPARIN 40 MG/0.4 ML SYRINGE SUB-Q (08:47)
[2024-02-12] MEDS: PANTOPRAZOLE 40 MG TABLET PO (08:47)
[2024-02-12] MEDS: LOSARTAN POTASSIUM 25 MG TABLET PO (08:47)
[2024-02-12] MEDS: FOLIC ACID 1 MG TABLET PO (08:47)
[2024-02-12] MEDS: REMDESIVIR 100 MG/NS 250 ML 100 MG/250 ML BAG 250 MG IVPB (10:35)
[2024-02-12 12:20] LABS: Glucose Point of Care 115 mg/dl (65-105)
[2024-02-12 17:10] LABS: Glucose Point of Care 144 mg/dl (65-105)
[2024-02-12] MEDS: traZODone HCL 50 MG TABLET 100 MG PO (19:54)
[2024-02-12] MEDS: ACETAMINOPHEN 325 MG TABLET 650 MG PO (19:55)
[2024-02-13] VITALS (8 sets, daily range): BP systolic 145; BP diastolic 75; PULSE 50–68; RESP 18; TEMP 36.5; O2SAT 95–98
[2024-02-13 00:13] LABS: Glucose Point of Care 204 mg/dl (65-105)
[2024-02-13 05:38] LABS: Basophils Percent Auto 0.2 % (0.2-1.2); Eosinophils Percent Auto 0.2 % (0-4.4); Hematocrit 48.9 % (42.0-52.0); Hemoglobin 15.8 g/dL (14.0-18.0); Immature Granulocyte Absolute 0.01 K/mm3 (0.00-0.031); Immature Granulocyte Percent A 0.2 % (0-0.5); Lymphocytes Absolute Auto 1.28 K/mm3 (0.9-3.2); Lymphocytes Percent Auto 25.4 % (18.3-44.2); Mean Corpuscular HGB Conc 32.3 g/dl (32-36); Mean Corpuscular Hemoglobin 28.9 pg (26-34); Mean Corpuscular Volume 89.4 fl (80-100); Mean Platelet Volume 9.5 fl (7.4-10.4); Monocytes Absolute Auto 0.5 K/mm3 (0.1-0.6); Monocytes Percent Auto 10.3 % (2.6-8.5); Neutrophils Absolute Auto 3.2 K/mm3 (1.3-6.7); Neutrophils Percent Auto 63.7 % (45.5-73.1); Platelet Count Result 163 k/mm3 (150-375); Red Blood Count 5.47 M/mm3 (4.6-6.20); Red Cell Distribution Width 13.9 % (11.5-14.5)
[2024-02-13 05:45] LABS: INR 1.1; Prothrombin Time 14.2 Seconds (11.1-14.7)
[2024-02-13 05:48] LABS: Alanine Aminotransferase 13 U/L (6-50); Albumin Level 3.7 g/dL (3.5-5.1); Alkaline Phosphatase 48 U/L (38-126); Aspartate Amino Transferase 24 U/L (17-59); Bilirubin,Total 0.6 mg/dL (0.2-1.3)
[2024-02-13 08:00] LABS: Glucose Point of Care 85 mg/dl (65-105)
[2024-02-13] MEDS: dexAMETHasone 2 MG TABLET 6 MG PO (08:01)
[2024-02-13] MEDS: ENOXAPARIN 40 MG/0.4 ML SYRINGE SUB-Q (08:01)
[2024-02-13] MEDS: ATORVASTATIN 10 MG TABLET PO (08:08)
[2024-02-13] MEDS: ASPIRIN 81 MG ENTERIC TABLET PO (08:08)
[2024-02-13] MEDS: AZITHROMYCIN 250 MG TABLET PO (08:09)
[2024-02-13] MEDS: buPROPion HCL SR (12HR) 100 MG TABCR PO (08:11)
[2024-02-13] MEDS: carvediloL 3.125 MG TABLET PO (08:12)
[2024-02-13] MEDS: guaiFENesin 12 HR 600 MG TABCR 1200 MG PO (08:12)
[2024-02-13] MEDS: LOSARTAN POTASSIUM 25 MG TABLET PO (08:12)
[2024-02-13] MEDS: EMPAGLIFLOZIN 25 MG TABLET PO (08:12)
[2024-02-13] MEDS: FOLIC ACID 1 MG TABLET PO (08:12)
[2024-02-13] MEDS: PANTOPRAZOLE 40 MG TABLET PO (08:13)
[2024-02-13] MEDS: MULTIVITAMINS THERAPEUTIC TAB (*BKC) 1 TABLET PO (08:13)
[2024-02-13] MEDS: ALBUTEROL SULFATE (*SP) AEROSOL 1 PUFF 2 PUFF INHALATION (08:21)
[2024-02-13] MEDS: REMDESIVIR 100 MG/NS 250 ML 100 MG/250 ML BAG 250 MG IVPB (10:01)
[2024-02-13 12:00] LABS: Glucose Point of Care 94 mg/dl (65-105)
--- NOTE | 2024-02-13 12:26 | P.DS_ITS ---
DS: Admitting Diagnosis Discharge Date 02/13/2024 1230 Admitting Diagnosis COVID DS: Discharge Diagnosis Discharge Diagnosis (1) COVID: Code(s): U07.1 - COVID-19 Status: Acute (2) Malignant neoplasm of upper lobe, left bronchus or lung: Code(s): C34.12 - Malignant neoplasm of upper lobe, left bronchus or lung Status: Acute (3) COPD exacerbation: Code(s): J44.1 - Chronic obstructive pulmonary disease with (acute) exacerbation Status: Acute (4) Essential (primary) hypertension: Code(s): I10 - Essential (primary) hypertension Status: Acute (5) Type 2 diabetes mellitus without complication, without long-term current use of insulin: Code(s): E11.9 - Type 2 diabetes mellitus without complications Status: Acute (6) Dyslipidemia, goal LDL below 100: Code(s): E78.5 - Hyperlipidemia, unspecified Status: Acute (7) Acute on chronic respiratory failure with hypoxia: Code(s): J96.21 - Acute and chronic respiratory failure with hypoxia Status: Acute (8) Bradycardia: Code(s): R00.1 - Bradycardia, unspecified Status: Acute (9) Bacteremia: Code(s): R78.81 - Bacteremia Status: Acute Plan bacteremia * Staphylococcus hominis and Staphylococcus epidermidis * likely contaminated * follow-up cultures pending 02/12/2024: * repeat cultures NGTD post 24 hours Acute on chronic respiratory failure with hypoxia * Wears 3L NC supplemental oxygen at home non-compliant * placed on 6L in the ED 98% Wean O2 to maintain SPO2 92% * COVID+ * COPD exacerbation * Smoking cessation COVID+ * CXR showing hyperinflated lungs * Supportive care. * Monitor for COVID pneumonia, acute respiratory distress syndrome. * Decadron 6 mg daily * remdesivir for 5 days for patient with high risk for hypoxemia * supplemental oxygen as needed to maintain 92% oxygen saturation * monitor LFTs daily * incentive spirometer while awake * DuoNebs * guaifenesin scheduled for cough * glucose control for steroid use * gentle IV hydration keep patient dry COPD * HX malignant neoplasm of the upper lobe * Bronchodilators. * CXR showing hyperinflated lungs * incentive spirometry while awake. * steroids initiated covered with Decadron for COVID-19 * azithromycin 500 x 1 day/250 daily * supplemental oxygen therapy to maintain oxygen 92% wears 3L at home noncompliance * Pulmonary rehab if indicated. * Disease management following GOLD guidelines. * Repeat hospitalization risk evaluation per [facility] * Smoking cessation counseling done * Follow-up with station air traffic control specialist as an outpatient Bradycardia * Decreased metoprolol to 50 mg b.i.d. * Cardiac monitoring 02/12/2024 * changed metoprolol to carvedilol 3.125 b.i.d. * Change his lisinopril to losartan 25 Diabetes * Accu-Cheks a.c. HS * sliding scale insulin * Jardiance resumed * hold oral diabetic medications (Metformin on medication reconciliation) * resume patient's home long-acting * Hemoglobin A1c 7.2 02/2022 repeat pending * Diabetic diet * encourage lifestyle modifications and weight loss * Optimize Isrrael inhibitors and statins. * Watch for hypoglycemia/hypoglycemic protocol ordered HX CAD: resumed BB and statin HX HTN: Changed to carvedilol and losartan discontinued his lisinopril and metoprolol Code status: Full code per patient DVT prophylaxis: Lovenox Stress ulcer prophylaxis: Protonix 40 daily PT/OT notes: PT/OT pending Disposition: Patient will continue admission to the medical unit treatment COPD exacerbation and supportive care for COVID-19 continue to wean supplemental oxygen as tolerated to maintain 92%. Plan will be to return home with when medically stable. pending follow-up blood cultures post 48 hours. Should be able to discharge tomorrow if no events and cultures remain with NGTD. DS: Summary Hospital Course Hospital Course: Patient is a 78-year-old male with a past medical history of COPD, CAD, right lung cancer who presented to the ED with complaints of shortness of breath, productive cough, weakness and fatigue. It was noted by family in by the patient the patient had increased fluid GB for last day or 2. Patient does wear oxygen at home 3 L but has not been compliant over the last few years. He also tried inhalers at home however he did not have any relief. COVID test did come back positive along with chest x-ray which showed hyperinflation. Patient was placed on 6 L nasal cannula for acute chronic respiratory failure. It did note the patient did have positive blood cultures however appear to be a contaminant is a did come back as Staph home he is and epididymitis. Repeat blood cultures also appeared to be contaminated is in 1 bottle Streptococcus. Patient currently is doing well and is ready to go home. He denies any current chest pain, shortness a breath, nausea, vomiting, diarrhea constipation. Patient is s table for discharge for labs and vital signs. Status at Discharge Functional status at discharge: uses cane/walker Overall status at discharge: patient is progressing back to baseline Time Spent with Patient Time attestation: Total time spent providing and/or coordinating discharge services: 48 minutes Time spent: Greater than 30 minutes Specific discharge activities: Diagnostic testing, chart review, developing a treatment plan, education, care coordination documentation, physical exam, result review Exam Narrative: Physical Exam: * GENERAL: Alert and oriented x 3. No acute distress. * EYES: EOMI. No scleral icterus. PERRLA. * HEENT: Moist mucous membranes. * LUNGS: Rhonchi throughout auscultation bilaterally. use of accessory muscles and tachypnea * CARDIOVASCULAR: Regular rate and rhythm. No murmur. No JVD. S1-S2 * ABDOMEN: Soft, non tenderness and non-distended. No palpable masses. * EXTREMITIES: No edema. Non-tender * SKIN: No rashes or lesions. Skin warm, dry. * NEUROLOGIC: No focal neurological deficits. CN II-XII grossly intact * PSYCHIATRIC: Appropriate mood and affect. Good judgement and insight. No visual or auditory hallucinations. No suicidal or homicidal ideation. DS: Data Data Completed and Pending Labs on day of discharge: Labs from last 24 hours 02/13/24 02/13/24 02/13/24 11:50 07:52 04:57 WBC 5.0 RBC 5.47 Hgb 15.8 Hct 48.9 MCV 89.4 MCH 28.9 MCHC 32.3 RDW 13.9 Plt Count 163 MPV 9.5 Immature Gran % (Auto) 0.2 Neut % (Auto) 63.7 Lymph % (Auto) 25.4 [place] % (Auto) 10.3 H Eos % (Auto) 0.2 Baso % (Auto) 0.2 Lymph # (Auto) 1.28 [place] # (Auto) 0.5 Eos # (Auto) 0.0 Baso # (Auto) 0.0 Abs Immat Gran (auto) 0.01 Absolute Neuts (auto) 3.2 Absolute Nucleated RBC 0.000 Nucleated RBC % 0.0 PT 14.2 INR 1.1 POC Capillary Glucose 94 85 Total Bilirubin 0.6 Direct Bilirubin 0.0 AST 24 ALT 13 Alkaline Phosphatase 48 Total Protein 6.0 L Albumin 3.7 Procalcitonin 02/13/24 02/12/24 02/12/24 04:56 20:01 17:03 WBC RBC Hgb Hct MCV MCH MCHC RDW Plt Count MPV Immature Gran % (Auto) Neut % (Auto) Lymph % (Auto) [place] % (Auto) Eos % (Auto) Baso % (Auto) Lymph # (Auto) [place] # (Auto) Eos # (Auto) Baso # (Auto) Abs Immat Gran (auto) Absolute Neuts (auto) Absolute Nucleated RBC Nucleated RBC % PT INR POC Capillary Glucose 204 H 144 H Total Bilirubin Direct Bilirubin AST ALT Alkaline Phosphatase Total Protein Albumin Procalcitonin 0.0 Preliminary micro results at discharge 02/11/24 12:20 Blood Culture - Preliminary Blood Gram positive cocci cluster is 02/11/24 12:14 Blood Culture - Preliminary Blood 02/09/24 02:13 Blood Culture - Preliminary Blood Discharge Plan Discharge Attending physician on discharge: Gaby Griffiths Discharging Clinician: Shady Patel Patient Disposition: Home, Self-Care Activity: may shower, unlimited and as tolerated Diet: heart healthy Discharge Instructions: * Take all medications as prescribed even if feeling better * Wear a mask in public, and stay away from large crowds * Eat well balanced meals and stay hydrated * Keep active, but do not over do it * If you notice that you are short of breath sit down and take a break * Check your SPO2 periodically, if it is low cough and rest, check again in about 15 minutes, if you remain low, you should come back to the hospital * If you should experience any chest pain, shortness of breath, temps >100.4 or any other worrisome symptoms please follow up with your PCP come back to the hospital * Follow up with your primary in 1 weeks * It has been a pleasure taking care of you thank you for using our services Patient Instructions: Antibiotic Form Stand Alone Forms: General Discharge Information Follow-up/Referrals: Alida,Jonah Priest MD [Primary Care Provider] - Call for Appointment Discharge Medications: New dexamethasone 2 mg Tablet 6 mg PO DAILY@0800 Qty: 6 0RF folic acid 1 mg Tablet 1 mg PO DAILY Qty: 30 0RF losartan 25 mg Tablet 25 mg PO DAILY Qty: 30 0RF carvedilol [Coreg] 3.125 mg Tablet 3.125 mg PO Q12HR Qty: 60 0RF Continued aspirin [Aspir-Low] 81 mg tablet,delayed release (DR/EC) 81 mg PO DAILY Symbicort 160-4.5 mcg/actuation HFA aerosol inhaler 2 puff INHALATION BID trazodone 100 mg tablet 100 mg PO HS Patient Comments: Yamil Cash albuterol sulfate 90 mcg/actuation HFA aerosol inhaler 1 inh inhalation Q4H PRN (Reason: Dyspnea) bupropion HCl 100 mg tablet sustained-release 12 hr 100 mg PO BID metoprolol tartrate 100 mg tablet 50 mg PO BID Rx Instructions: TAKE 1/2 TABLET BY MOUTH TWICE DAILY Spiriva Respimat 2.5 mcg/actuation mist 2 puff INHALATION QAM ipratropium-albuterol 0.5 mg-3 mg(2.5 mg base)/3 mL solution for nebulization See Rx Instructions .ROUTE .COMPLEX Qty: 180 0RF Dose Instruction: USE 3 ML VIA NEBULIZER EVERY 4 HOURS NEEDED FOR SHORTNESS OF BREATH Rx Instructions: USE 3 ML VIA NEBULIZER EVERY 4 HOURS NEEDED FOR SHORTNESS OF BREATH atorvastatin 10 mg tablet 10 mg PO DAILY Qty: 90 1RF Jardiance 25 mg tablet 25 mg PO DAILY Qty: 90 1RF Discontinued lisinopril 40 mg tablet 40 mg PO QAM Rx Instructions: TAKE 1 TABLET BY MOUTH EVERY DAY Date of admission: 02/11/24 10:15 Primary Care Provider: Alida,Jonah Priest Admitting Provider: Griselda Mar Attending physician on admission: Jade Coronado Condition: Stable Quality VTE Prophylaxis VTE prophylaxis: pharmacologic ordered Hospitalist MIPS Heart Failure (Exclusion) Patient has history of Heart Transplant or Left Ventricular Assistive Device?: No IF YES, STOP HERE Heart Failure (Qualifier) Patient has current or prior documentation of LVEF less than or equal to 40%, or mod/servere depressed LVSF?: No IF NO, STOP HERE
== END 2024-02-13 13:55 | disposition home or self-care (01) | DRG 178 ==
LOC: ANHED 02-09 02:39 → ANH2MED 02-09 07:23
PROVIDERS: Nurse Practitioner Family; Admitting Provider Internal Medicine; Emergency Provider Emergency Medicine; PCP Internal Medicine; Visit Provider Nurse Practitioner
DX: U07.1 COVID-19 (principal); J44.1 Chronic obstructive pulmonary disease with (acute) exacerbation; J96.11 Chronic respiratory failure with hypoxia; R78.81 Bacteremia; B95.8 Unspecified staphylococcus as the cause of diseases classified elsewhere; I25.10 Atherosclerotic heart disease of native coronary artery without angina pectoris; I10 Essential (primary) hypertension; E11.9 Type 2 diabetes mellitus without complications; E78.5 Hyperlipidemia, unspecified; F17.210 Nicotine dependence, cigarettes, uncomplicated; R00.1 Bradycardia, unspecified; Z85.118 Personal history of other malignant neoplasm of bronchus and lung; Z85.828 Personal history of other malignant neoplasm of skin; Z79.84 Long term (current) use of oral hypoglycemic drugs; Z95.5 Presence of coronary angioplasty implant and graft; Z99.81 Dependence on supplemental oxygen; Z91.199 Patient's noncompliance with other medical treatment and regimen due to unspecified reason
CPT/HCPCS: 36415; 71045; 80053; 80076; 81001; 82948; 83036; 83735; 84145; 85025; 85027; 85610; 87040; 87077; 87181; 87637; 93005; 94002; 94640; 96372; 96374; 96375; 97161; 97165; 99285; A9270; G0378; J0248; J1100; J1650; J1815; J8540

== ENCOUNTER 2024-05-06 08:17 | Outpatient (CLI) | payer MEDICARE, SELFPAY ==
--- NOTE | ~2024-05-06 | CT_ITS ---
Clinical Indication: Lung cancer CT Scan of the Chest with Contrast: Technique: Contiguous sections were acquired throughout the chest after intravenous administration of 75 cc of Omnipaque 350. Dose reduction technique was used on this scan by utilizing automated exposu re control and iterative reconstruction technique. The dose-length product (DLP) was 218.20 mGy-cm. COMPARISON: 01/22/2024 Findings: There is no evidence of any significant mediastinal, hilar or axillary lymphadenopathy. There is no f illing defect in the pulmonary arterial tree to suggest pulmonary embolus. There is no evidence of ao rtic dissection or aneurysm. There are extensive atherosclerotic changes of the aorta. There is no evidence of pleural or pericardial effusion. Stable small irregular nodule in the left upper lobe (axial image 48). No other pulmonary nodule or c onsolidation seen. Images through the upper abdomen reveal no abnormalities. Impression: Stable 13 mm irregular left upper lobe pulmonary nodule. Reviewed, dictated and finalized at [facility]. Impression: Stable 13 mm irregular left upper lobe pulmonary nodule.
[2024-05-06 08:47] LABS: Estimated Glomerular Filt Rate > 60
== END 2024-05-06 08:18 | disposition home or self-care (01) ==
PROVIDERS: PCP Internal Medicine; Visit Provider Radiology Radiation Oncology
DX: R91.1 Solitary pulmonary nodule (principal); C34.12 Malignant neoplasm of upper lobe, left bronchus or lung
CPT/HCPCS: 71260; Q9967